=== PATIENT | male | born 1950 | race Caucasian/White ===

== ENCOUNTER 2018-02-15 01:01 | Observation (INO) | payer OTHER ==
[2018-02-15 01:42] LABS: Absolute Lymphocytes (CBC) 2.8 K/uL (0.7-4.9); Absolute Monocytes 0.8 K/uL (0.1-1.3); Absolute Neutrophil 3.1 K/uL (1.8-8.0); Basophils % 0.9 % (0-1.3); Eosinophils % 4.9 % (0-4.4); Lymphocytes % 39.2 % (15.3-44.8); MCH 32.7 pg (27.0-35.0); MCV 92.2 fL (80-100); MPV 7.9 fL (7.6-11.3); Monocytes % 11.6 % (3.3-12.3); RBC Red Blood Cell Count 4.66 M/uL (4.33-5.43)
[2018-02-15 01:43] LABS: Protime INR 0.92
[2018-02-15 01:55] LABS: ALT/SGPT 46 U/L (12-78); AST/SGOT 28 U/L (15-37); Albumin 3.9 g/dL (3.4-5.0); Alkaline Phosphatase 121 U/L (45-117); BUN Blood Urea Nitrogen 20 mg/dL (7-18); Bicarbonate 28 mmol/L (21-32); Bilirubin Total 0.6 mg/dL (0.2-1.0); Glucose Level 109 mg/dL (74-106); Magnesium 2.2 mg/dL (1.8-2.4); NT PRO-BNP 14 pg/mL (<125); Potassium 3.6 mmol/L (3.5-5.1); Protein, Total 7.1 g/dL (6.4-8.2); Sodium Level 142 mmol/L (136-145); Troponin (Emerg Dept Use Only) < 0.02 ng/mL (0.0-0.045)
--- NOTE | 2018-02-15 04:13 | EDPHYS ---
Physician Documentation [facility] Name: Erick Horn Age: 67 yrs Sex: Male : 1950 Arrival Date: 02/15/2018 Time: 01:06 Bed 7 Private MD: ED Physician Yeison Hall HPI: 02/15 01:13 This 67 yrs old Male presents to ER via Wheelchair with complaints of Chest ps1 Pain. 01:13 The patient or guardian reports chest pain that is located primarily in the substernal ps1 area. Onset: just prior to arrival. The pain radiates to back. Associated signs and symptoms: The patient has no apparent associated signs or symptoms. The chest pain is described as a pressure. Duration: The patient or guardian reports a single episode, that is still ongoing, and unchanged. Severity of pain: At its worst the pain was moderate. The patient has not experienced similar symptoms in the past. HTN, HLD. . Historical: - Allergies: 01:12 No Known Allergies; tl2 - Home Meds: 01:12 None [Active]; tl2 - PMHx: 01:12 Hyperlipidemia; Hypertension; tl2 - PSHx: 01:12 None; tl2 - Immunization history:: Adult Immunizations up to date. - Social history:: Smoking status: Patient uses tobacco products, smokes one-half pack cigarettes per day. - Ebola Screening: : No symptoms or risks identified at this time. ROS: 01:16 Constitutional: Negative for fever, chills, and weight loss, Eyes: Negative for injury, ps1 pain, redness, and discharge, Respiratory: Negative for shortness of breath, cough, wheezing, and pleuritic chest pain, Abdomen/GI: Negative for abdominal pain, nausea, vomiting, diarrhea, and constipation, Back: Negative for injury and pain, MS/Extremity: Negative for injury and deformity, Skin: Negative for injury, rash, and discoloration, Neuro: Negative for headache, weakness, numbness, tingling, and seizure. 01:16 Cardiovascular: Positive for chest pain. Exam: 01:16 Constitutional: This is a well developed, well nourished patient who is awake, alert, ps1 and in no acute distress. Head/Face: Normocephalic, atraumatic. Eyes: Pupils equal round and reactive to light, extra-ocular motions intact. Lids and lashes normal. Conjunctiva and sclera are non-icteric and not injected. Chest/axilla: Normal chest wall appearance and motion. Nontender with no deformity. No lesions are appreciated. Cardiovascular: Regular rate and rhythm. No gallops, murmurs, or rubs. Normal PMI, no JVD. No pulse deficits. Respiratory: Lungs have equal breath sounds bilaterally, clear to auscultation and percussion. No rales, rhonchi or wheezes noted. No increased work of breathing, no retractions or nasal flaring. Abdomen/GI: Soft, non-tender, with normal bowel sounds. No distension or tympany. No guarding or rebound. No evidence of tenderness throughout. Skin: Warm, dry with normal turgor. Normal color with no rashes, no lesions, and no evidence of cellulitis. MS/ Extremity: Pulses equal, no cyanosis. Neurovascular intact. Full, normal range of motion. Neuro: Awake and alert, GCS 15, oriented to person, place, time, and situation. Cranial nerves II-XII grossly intact. Sensory grossly intact. Psych: Awake, alert, with orientation to person, place and time. Behavior, mood, and affect are within normal limits. Vital Signs: 01:12 BP 146 / 89; Pulse 84; Resp 22; Temp 97.6(O); Pulse Ox 96% on R/A; Weight 90.72 kg; tl2 Height 6 ft. 1 in. (185.42 cm); Pain 10/10; 01:12 BP 153 / 90 RA; tl2 01:55 BP 127 / 76; Pulse 72; Resp 16 S; Pulse Ox 96% on R/A; bb 03:11 BP 113 / 70; Pulse 70; Resp 10; Pulse Ox 96% on R/A; tl2 03:57 BP 111 / 68; Pulse 70; Resp 13; Pulse Ox 97% on R/A; tl2 06:01 BP 142 / 92; Pulse 70; Resp 13; Pulse Ox 95% on R/A; tl2 01:12 Body Mass Index 26.39 (90.72 kg, 185.42 cm) tl2 MDM: 01:13 Patient medically screened. ps1 02/15 01:12 Order name: CBC with Diff; Complete Time: 01:44 ps1 02/15 01:12 Order name: Magnesium; Complete Time: 01:56 ps1 02/15 01:12 Order name: NT PRO-BNP; Complete Time: :56 ps1 02/15 01:12 Order name: PT-INR; Complete Time: :45 ps1 02/15 01:12 Order name: Troponin (emerg Dept Use Only); Complete Time: 01:56 ps1 02/15 01:12 Order name: DD; Complete Time: :45 ps1 02/15 01:12 Order name: XRAY Chest (1 view) ps1 02/15 01:12 Order name: EKG; Complete Time: 01:12 ps1 02/15 01:12 Order name: Cardiac monitoring; Complete Time: :16 ps1 02/15 01:12 Order name: EKG - Nurse/Tech; Complete Time: :16 ps1 02/15 01:12 Order name: IV Saline Lock; Complete Time: :16 ps1 02/15 01:42 Order name: Comprehensive Metabolic Panel; Complete Time: :56 EDMS 02/15 05:08 Order name: Troponin (emerg Dept Use Only); Complete Time: 05:45 bb 02/15 01:12 Order name: Labs collected and sent; Complete Time: :16 ps1 02/15 01:12 Order name: O2 Per Protocol; Complete Time: :17 ps1 02/15 01:12 Order name: O2 Sat Monitoring; Complete Time: :17 ps1 EC:03 Rate is 85 beats/min. Rhythm is regular. QRS [place] is Normal. ND interval is normal. QRS ps1 interval is normal. QT interval is normal. No Q waves. T waves are Normal. No ST changes noted. Clinical impression: Normal ECG. Interpreted by me. Administered Medications: No medications were administered Disposition: 02/15/18 04:12 Hospitalization ordered by Coleen Corbett for Observation. Preliminary diagnosis is Chest pain, unspecified. - Bed requested for Telemetry/MedSurg (observation). - Status is Observation. tl2 - Condition is Stable. - Problem is new. - Symptoms have improved. UTI on Admission? No Signatures: Dispatcher [employer] [facility] Kaitlin Alcazar RN RN mw Gloria Sullivan RN RN tl2 Yeison Hall MD MD ps1 Corrections: (The following items were deleted from the chart) 02:08 01:42 COMPREHENSIVE METABOLIC PANEL+C.LAB.BRZ ordered. EDMS EDMS 04:33 04:12 Hospitalization Ordered by Coleen Corbett MD for Observation. Preliminary mw diagnosis is Chest pain, unspecified. Bed requested for Telemetry/MedSurg (observation). Status is Observation. Condition is Stable. Problem is new. Symptoms have improved. UTI on Admission? No. ps1 04:51 04:33 02/15/2018 04:12 Hospitalization Ordered by Coleen Corbett MD for Observation. mw Preliminary diagnosis is Chest pain, unspecified. Bed requested for Telemetry/MedSurg (observation). Status is Observation. Condition is Stable. Problem is new. Symptoms have improved. UTI on Admission? No. mw 06:32 04:51 02/15/2018 04:12 Hospitalization Ordered by Coleen Corbett MD for Observation. tl2 Preliminary diagnosis is Chest pain, unspecified. Bed requested for Telemetry/MedSurg (observation). Status is Observation. Condition is Stable. Problem is new. Symptoms have improved. UTI on Admission? No. mw
--- NOTE | 2018-02-15 04:13 | ER ---
Nurse's Notes [facility] Name: Erick Horn Age: 67 yrs Sex: Male : 1950 Arrival Date: 02/15/2018 Time: 01:06 Bed 7 Private MD: Diagnosis: Chest pain, unspecified Presentation: 02/15 01:10 Presenting complaint: Patient states: "I woke up about 20 minutes ago with chest pain tl2 that goes to my back." Pt clutching chest and reports shortness of breath. Transition of care: patient was not received from another setting of care. Onset of symptoms was February 15, 2018 at 00:45. Risk Assessment: Do you want to hurt yourself or someone else? Patient reports no desire to harm self or others. Initial Sepsis Screen: Does the patient meet any 2 criteria? No. Patient's initial sepsis screen is negative. Does the patient have a suspected source of infection? No. Patient's initial sepsis screen is negative. Care prior to arrival: None. 01:10 Method Of Arrival: Wheelchair tl2 01:10 Acuity: EDER 2 tl2 Triage Assessment: 01:12 General: Appears in no apparent distress. uncomfortable, Behavior is cooperative, tl2 appropriate for age, anxious. Pain: Complains of pain in back and chest Pain does not radiate. Pain currently is 10 out of 10 on a pain scale. Quality of pain is described as sharp, Noted to be grimacing, guarding. Neuro: Level of Consciousness is awake, alert, obeys commands, Oriented to person, place, time, situation. Cardiovascular: Rhythm is sinus rhythm Chest pain is described as diffuse. Respiratory: Reports shortness of breath Airway is patent Respiratory effort is even, unlabored, Respiratory pattern is regular, symmetrical. GI: No signs and/or symptoms were reported involving the gastrointestinal system. Derm: Skin is pink, warm \\T\\ dry. Historical: - Allergies: 01:12 No Known Allergies; tl2 - Home Meds: 01:12 None [Active]; tl2 - PMHx: 01:12 Hyperlipidemia; Hypertension; tl2 - PSHx: 01:12 None; tl2 - Immunization history:: Adult Immunizations up to date. - Social history:: Smoking status: Patient uses tobacco products, smokes one-half pack cigarettes per day. - Ebola Screening: : No symptoms or risks identified at this time. Screenin:15 Abuse screen: Denies threats or abuse. Nutritional screening: No deficits noted. tl2 Tuberculosis screening: No symptoms or risk factors identified. Fall Risk None identified. Assessment: 01:13 General: Appears uncomfortable, well groomed, Behavior is cooperative, anxious. Pain: bb Complains of pain in chest Pain radiates to back Pain began suddenly. Neuro: Level of Consciousness is awake, alert, obeys commands, Oriented to person, place, time, situation. Cardiovascular: Heart tones S1 S2 present Capillary refill < 3 seconds Patient's skin is warm and dry. Pulses are all present. Edema is absent. Rhythm is sinus rhythm. Respiratory: Respiratory effort is unlabored, Breath sounds are clear bilaterally. GI: Abdomen is non-distended, Bowel sounds present X 4 quads. Abd is soft and non tender X 4 quads. Derm: Skin is pink, warm \\T\\ dry. Musculoskeletal: Circulation, motion, and sensation intact. 01:54 Reassessment: Patient and/or family updated on plan of care and expected duration. Pain bb level reassessed. Patient is alert, oriented x 3, equal unlabored respirations, skin warm/dry/pink. pt states pain has improved now 10/09. 03:11 Reassessment: Patient appears in no apparent distress at this time. Patient and/or tl2 family updated on plan of care and expected duration. Pain level reassessed. Pt appears to be sleeping, RR even and unlabored. 06:06 Reassessment: Patient appears in no apparent distress at this time. Patient and/or tl2 family updated on plan of care and expected duration. Pain level reassessed. Patient is alert, oriented x 3, equal unlabored respirations, skin warm/dry/pink. Pt stable and ready for transport to floor Patient states feeling better. Vital Signs: 01:12 BP 146 / 89; Pulse 84; Resp 22; Temp 97.6(O); Pulse Ox 96% on R/A; Weight 90.72 kg; tl2 Height 6 ft. 1 in. (185.42 cm); Pain 10/; 01:12 BP 153 / 90 RA; tl2 01:55 BP 127 / 76; Pulse 72; Resp 16 S; Pulse Ox 96% on R/A; bb 03:11 BP 113 / 70; Pulse 70; Resp 10; Pulse Ox 96% on R/A; tl2 03:57 BP 111 / 68; Pulse 70; Resp 13; Pulse Ox 97% on R/A; tl2 06:01 BP 142 / 92; Pulse 70; Resp 13; Pulse Ox 95% on R/A; tl2 01:12 Body Mass Index 26.39 (90.72 kg, 185.42 cm) tl2 Vitals: 01:12 The patient's bilateral blood pressures are equal. tl2 ED Course: 01:05 Inserted saline lock: 20 gauge in right antecubital area, using aseptic technique. bb Blood collected. 01:06 Patient arrived in ED. fc 01:10 Gloria Sullivan RN is Primary Nurse. tl2 01:11 Yeison Hall MD is Attending Physician. ps1 01:11 Triage completed. tl2 01:12 Arm band placed on right wrist. tl2 01:15 Patient maintains SpO2 saturation greater than 95% on room air. tl2 01:15 Patient has correct armband on for positive identification. Bed in low position. Call tl2 light in reach. Side rails up X2. clay pigeon setter on. Pulse ox on. NIBP on. 01:22 X-ray completed. Portable x-ray completed in exam room. Patient tolerated procedure ml well. 01:23 XRAY Chest (1 view) In Process Unspecified. EDMS 01:44 Notified ED physician of a critical lab result(s). d-dimer of 523. fc 04:12 Coleen Corbett MD is Hospitalizing Provider. ps1 06:06 No provider procedures requiring assistance completed. Patient admitted, IV remains in tl2 place. Administered Medications: No medications were administered Outcome: 04:12 Decision to Hospitalize by Provider. ps1 06:06 Admitted to Tele accompanied by nurse, via wheelchair, room 402, with chart, Report tl2 called to MARIAM Ceron 06:06 Condition: stable 06:06 Discharge instructions given to patient, Instructed on the need for admit. 06:32 Patient left the ED. tl2 Signatures: Dispatcher [employer] [facility]OK Loraine Cobian RN RN Paola Briones RN RN bb Lopez, Melissa ml Knox, Taylor, RN RN tl2 Yeison Hall MD MD ps1
[2018-02-15] MEDS ORDERED: ACETAMINOPHEN 500 MG TAB PO PRN (05:39)
[2018-02-15] MEDS ORDERED: MORPHINE 4 MG/ML SYR IV PRN (05:39)
[2018-02-15 06:37] VITALS: BMI 27.1
[2018-02-15 06:41] VITALS: O2SAT 95
[2018-02-15] MEDS ORDERED: NA CHLORIDE 0.9% 1,000 ML IV SCH (07:00)
--- NOTE | 2018-02-15 07:32 | P.HP ---
Certification for Inpatient Patient admitted to: Observation With expected LOS: <2 Midnights Patient will require the following post-hospital care: None Practitioner: I am a practitioner with admitting privileges, knowledge of patient current condition, hospital course, and medical plan of care. Services: Services provided to patient in accordance with Admission requirements found in Title 42 Section 412.3 of the Code of Federal Regulations Patient History Date of Service: 02/15/18 Reason for admission: Chest pain History of Present Illness: Patient is a 67-year-old gentleman who came into the hospital with chest pain. Pain was mainly in the sternal region and radiated to his back. His symptoms were not improving so he came to the hospital for evaluation. His chest pain slowly alleviated in the emergency room on its own. He was given medication but he is unsure exactly what he was given. Currently he is feeling much better. Labs revealed elevated D-dimer but no other abnormality. Patient does have a history of tobacco use and smokes half a pack of cigarettes a day. Otherwise he has dyslipidemia but denies any other risk factors. No diabetes or hypertension. He denies any family history. He will be admitted to the hospital for further evaluation. Allergies No Known Allergies Allergy (Verified 02/15/18 05:53) Home Medications: NK [No Home Meds] 02/15/18 - Past Medical/Surgical History Past Medical History: Patient denies medical history -: Dyslipidemia Past Surgical History: Patient denies surgical history - Family History Father Family History: Reviewed- Non-Contributory - Social History Smoking Status: Heavy Tobacco smoker (>10 cigarettes/day) Review of Systems 10-point ROS is otherwise unremarkable Physical Examination - Vital Signs Temperature: 97.9 F Blood Pressure: 156/85 Pulse: 70 Respirations: 16 Pulse Ox (%): 97 - Physical Exam General: Alert, In no apparent distress, Oriented x3 HEENT: Atraumatic, PERRLA, Mucous membr. moist/pink, EOMI, Sclerae nonicteric Neck: Supple, 2+ carotid pulse no bruit, No LAD, Without JVD or thyroid abnormality Respiratory: Clear to auscultation bilaterally, Normal air movement Cardiovascular: Regular rate/rhythm, Normal S1 S2, No murmurs Gastrointestinal: Normal bowel sounds, Soft and benign, Non-distended, No tenderness Musculoskeletal: No clubbing, No swelling, No tenderness Integumentary: No rashes Neurological: Normal gait, Normal speech, Normal strength at 5/5 x4 extr, Normal tone, Sensation intact, Cranial nerves 3-12 intact, Normal affect Lymphatics: No axilla or inguinal lymphadenopathy - Studies Laboratory Data (last 24 hrs) 02/15/18 01:42: Sodium Cancelled, Potassium Cancelled, BUN Cancelled, Creatinine Cancelled, Glucose Cancelled, Total Bilirubin Cancelled, AST Cancelled, ALT Cancelled, Alkaline Phosphatase Cancelled 02/15/18 01:15: PT 10.9, INR 0.92 02/15/18 01:15: Sodium 142, Potassium 3.6, BUN 20 H, Creatinine 1.00, Glucose 109 H, Magnesium 2.2, Total Bilirubin 0.6, AST 28, ALT 46, Alkaline Phosphatase 121 H 02/15/18 01:15: WBC 7.0, Hgb 15.3, Hct 43.0, Plt Count 215 Assessment & Plan - Problems (Diagnosis) (1) Chest pain, rule out acute myocardial infarction Current Visit: Yes Status: Acute (2) Pain radiating to back Current Visit: Yes Status: Acute (3) Dyslipidemia Current Visit: Yes Status: Acute (4) Tobacco use Current Visit: Yes Status: Acute - Plan 1. Serial troponins and EKG 2. Cardiology consultation 3. Echocardiogram and will do a CT of the chest for dissection 4. Anti-platelet therapy, beta-ezequiel, statin, and O2 as needed 5. IV morphine for pain 6. Fabricator Foam Rubber regarding tobacco cessation 7. GI and DVT prophylaxis Discharge Plan: Home Plan to discharge in: Greater than 2 days - Advance Directives Does patient have a Living Will: No Does patient have a Durable POA for Healthcare: No - Code Status/Comfort Care Code Status Assessed: Yes Code Status: Full Code Critical Care: No Time Spent Managing PTS Care (In Minutes): 50
[2018-02-15 07:50] LABS: HDL Cholesterol 39 mg/dL (40-60); LDL Cholesterol, Calculated 21 (<130); Troponin I < 0.02 ng/mL (0.0-0.045)
--- NOTE | 2018-02-15 07:51 | EKG ---
Test Date: 2018-02-15 Test Time: 01:03:46 Improvement Coordinator: MEASUREMENT RESULTS: Intervals: Rate: 85 [place]: 150 QRSD: 100 QT: 356 QTc: 423 [place]: P: 48 [place]: 150 QRS: 59 T: 61 INTERPRETIVE STATEMENTS: Normal sinus rhythm Normal ECG Compared to ECG 12/12/2006 13:56:13 Early repolarization no longer present Electronically Signed On 02-15-18 07:50:53 CDT by Aaron Apple
--- NOTE | 2018-02-15 08:40 | RAD REPORT ---
EXAM DESCRIPTION: RAD - Chest Single View - 02/15/2018 1:26 am CLINICAL HISTORY: CHEST PAIN Chest pain. COMPARISON: No comparisons FINDINGS: Portable technique limits examination quality. The lungs are grossly clear. The heart is normal in size. No displaced fractures. IMPRESSION: No acute intrathoracic process suspected.
[2018-02-15] MEDS ORDERED: ASPIRIN EC 81 MG TAB PO SCH (09:00)
[2018-02-15] MEDS ORDERED: METOPROLOL TAR 50 MG TAB PO SCH (09:00)
[2018-02-15] MEDS ORDERED: REGADENOSON 0.4 MG/5 ML SYR IV ONE (09:26)
[2018-02-15] MEDS ORDERED: PNEUMOCOCCAL VACCINE 0.5 ML IMVAC ONE (10:00)
--- NOTE | 2018-02-15 10:33 | EKG ---
Test Date: 2018-02-15 Test Time: 08:01:13 Heel Coverer Machine Operator: SASCHA MEASUREMENT RESULTS: Intervals: Rate: 62 PA: 194 QRSD: 90 QT: 388 QTc: 393 [place]: P: PA: 194 QRS: 37 T: 42 INTERPRETIVE STATEMENTS: Normal sinus rhythm Normal ECG Compared to ECG 02/15/2018 01:03:46 No significant changes Electronically Signed On 02-15-18 10:32:34 CDT by Aaron Apple
--- NOTE | 2018-02-15 10:40 | RAD REPORT ---
EXAM DESCRIPTION: CT - Angio Aorta For Dissection - 02/15/2018 10:28 am CLINICAL HISTORY: Chest pain radiating to the back. chest pain radiating to back COMPARISON: No comparisons TECHNIQUE: CT angiography of the aorta was performed with MIPs. All CT scans are performed using dose optimization technique as appropriate and may include automated exposure control or mA/KV adjustment according to patient size. FINDINGS: A left aortic arch is present with 4 vessel branching pattern of the great vessels.No acut e aortic finding is seen such as aneurysm, penetrating ulcer or dissection. The celiac axis, SMA, IM A and renal arteries are widely patent. No evidence of pulmonary embolism. The lungs are clear. Diffuse fatty liver is present.No focal liver mass or biliary dilatation. Several small gallstones ar e present in the gallbladder.The spleen, pancreas, adrenal glands and kidneys are within normal limit s for arterial phase imaging.20 mm diverticulum is seen of the duodenum near the pancreatic head. No bowel obstruction, free fluid or abscess.The appendix is normal.No pathologic enlarged lymphadenop athy identified. No fracture or worrisome bone lesion seen. IMPRESSION: No acute aortic finding is demonstrated. Cholelithiasis. Fatty liver infiltration.
[2018-02-15 12:46] VITALS: BP 120/65; TEMP 97.9
--- NOTE | 2018-02-15 13:50 | RAD REPORT ---
EXAM DESCRIPTION: NM - Rest Stress Cardiac Imaging - 02/15/2018 1:07 pm CLINICAL HISTORY: Chest pain COMPARISON: None. TECHNIQUE: The patient was administered 10.6 mCi of Tc 99m Sestamibi prior to resting SPECT imaging of the heart. The patient was then administered 32.2 mCi of Tc 99m Sestamibi following exercise or ph armacologic stress. Multiplanar SPECT images were reviewed. FINDINGS: The end diastolic volume is 118 ml, the end systolic volume is 48 ml, and the ejection fra ction is 59 %. No stress-induced ischemic change identifiable. A small fixed defect anteroseptal wall near the apex is probably attenuation artifact. A small focus of scarring is possible. No other fixed defects seen. IMPRESSION: No stress-induced ischemia. Small fixed defect anteroseptal wall near the apex could be scarring or a small attenuation artifact. End-diastolic volume was 118 mL with a 59% EF.
--- NOTE | 2018-02-15 14:24 | TREADPHA ---
DX: CHEST PAIN Date of Study: 02/15/2018 Ht: 6 1 Wt: 206 lb 0 oz Consulting Physician: DOMONIQUE MEDICATIONS: TYLENOL, ASPIRIN, LOPRESSOR HISTORY: 67 YEAR OLD MALE WITH COMPLAINTS OF CHEST PAIN. HISTORY OF SMOKING. PHYSICIAL EXAMINATION: RESTING B.P.: 133/69 RESTING H.R.: 57 RESTING EKG: SINUS BRADYCARDIA, OTHERWISE NORMAL PROTOCOL: EXERCISE TIME: 3:30 B.P. AT PEAK STRESS: 126/69 IMPRESSION: LEXISCAN INJECTED; CARDIOLITE INJECTED PER PROTOCOL. SEE NUCLEAR MEDICINE REPORT. NO CHEST PAIN. NO VENTRICULAR TACHYCARDIA. NO SUPRAVENTRICULAR TACHYCARDIA. NON-DIAGNOSTIC ELECTROCARDIOGRAM WITH LEXISCAN STRESS.
--- NOTE | 2018-02-15 14:25 | CON ---
Additional Attending Physician: Dr. Landon. Chief Complaint: Chest pain. History Of Present Illness: The patient awakened and sometimes got admitted at midnight and 2 a.m. t his morning with pain in center part of his back, may be epigastric posterior and also pain in the ch est. It went away when he sat up and walked around since he has been in the hospital. He has had a normal EKG, normal enzymes. He has no history of heart disease. He has hypertension, but he stopped taking medicines a year ago. He has a history of hyperthyroidism. He took medicines for a while, t hen quit. Has not had any followup with a physician in sometime. He took cholesterol medicines. Do es not remember high they were quit taking that also. He is a regular tobacco user. Does not have a n exercise program. No history of myocardial infarction, stroke, stents in the heart, bypass surgery , or chest pain before this. Allergies: HE REPORTS NO ALLERGIES. Physical Examination: Vital Signs: Six feet and 1 inch, 206 pounds, body mass index 27. HEENT: Unremarkable. Lungs: Clear. Cardiac: Normal. Abdomen: Soft. Extremities: Normal. No cyanosis, clubbing, or edema. Distal pulses palpable. Laboratory Data: His electrocardiogram is normal. Chest x-ray is normal. Assessment And Plan: I think the patient should have an echo and a stress test and repeat TSH. He s hould go through the tobacco cessation program and we should base any further testing or interventions on the results of the preli minary test. JACK Voice ID: [id number] Report ID: [id number]
--- NOTE | 2018-02-15 14:28 | ECHO ---
HEIGHT: 6 ft 1 in WEIGHT: 206 lb 0 oz DATE OF STUDY: 02/15/[address]: Coleen Corbett MD 2-DIMENSIONAL: YES M.MODE: YES DOPPLER: YES COLOR FLOW: YES TDS: YES PORTABLE: DEFINITY: BUBBLE STUDY: DIAGNOSIS: CHEST PAIN RULE OUT ACUTE CORNARY SYNDROME CARDIAC HISTORY: CATHERIZATION: NO SURGERY: NO PROSTHETIC VALVE: NO PACEMAKER: NO MEASUREMENTS (cm) DIASTOLIC (NORMALS) SYSTOLIC (NORMALS) IVSd 0.9 (0.6-1.2) LA Diam 4.1 (1.9-4.0) LVEF 60-69% LVIDd 5.0 (3.5-5.7) LVIDs 3.7 (2.0-3.5) %FS 26% LVPWd 0.9 (0.6-1.2) Ao Diam 3.2 (2.0-3.7) 2 DIMENSIONAL ASSESSMENT: RIGHT ATRIUM: NORMAL LEFT ATRIUM: DILATED RIGHT VENTRICLE: NORMAL LEFT VENTRICLE: NORMAL TRICUSPID VALVE: NORMAL MITRAL VALVE: NORMAL PULMONIC VALVE: NORMAL AORTIC VALVE: NORMAL PERICARDIAL EFFUSION: NONE AORTIC ROOT: NORMAL LEFT VENTRICULAR WALL MOTION: NORMAL DOPPLER/COLOR FLOW: NORMAL COMMENTS: MIILDLY DILATED LEFT ATRIUM. OTHERWISE NORMAL 2-DIMENSIONAL ECHOCARDIOGRAM WITH DOPPLER. TECHNOLOGIST: PELON BARRON
--- NOTE | 2018-02-15 17:44 | P.DS ---
Admission Date: 02/15/18 Discharge Date: 02/15/18 Disposition: ROUTINE DISCHARGE Discharge Condition: GOOD Reason for Admission: Chest pain - Problems (1) Chest pain, rule out acute myocardial infarction Current Visit: Yes Status: Acute (2) Dyslipidemia Current Visit: Yes Status: Acute Brief History of Present Illness: Patient presented with chest pressure. Was admitted by the hospitalist Hospital Course: Placed in Telemetry. Seen by Dr. Apple normal stress test and echocardiogram. Will discharge him home. Give him 30 days of his medications. Have the patient follow up with Nelson Pulido. His pcp. Vital Signs/Physical Exam: Temp Pulse Resp BP Pulse Ox 97.9 F 59 18 120/65 97 02/15/18 12:00 02/15/18 12:00 02/15/18 12:00 02/15/18 12:00 02/15/18 12:00 General: Alert, In no apparent distress HEENT: Atraumatic, PERRLA, EOMI Neck: Supple, JVD not distended Respiratory: Clear to auscultation bilaterally, Normal air movement Cardiovascular: Regular rate/rhythm, Normal S1 S2 Gastrointestinal: Normal bowel sounds, No tenderness Musculoskeletal: No tenderness Integumentary: No rashes Neurological: Normal speech, Normal tone, Normal affect Lymphatics: No axilla or inguinal lymphadenopathy Laboratory Data at Discharge: WBC 7.0 K/uL (4.3-10.9) 02/15/18 01:15 Hgb 15.3 g/dL (13.6-17.9) 02/15/18 01:15 Hct 43.0 % (39.6-49.0) 02/15/18 01:15 Plt Count 215 K/uL (152-406) 02/15/18 01:15 PT 10.9 SECONDS (9.5-12.5) 02/15/18 01:15 INR 0.92 02/15/18 01:15 Sodium 142 mmol/L (136-145) 02/15/18 01:15 Potassium 3.6 mmol/L (3.5-5.1) 02/15/18 01:15 BUN 20 mg/dL (7-18) H 02/15/18 01:15 Creatinine 1.00 mg/dL (0.55-1.3) 02/15/18 01:15 Glucose 109 mg/dL (74-106) H 02/15/18 01:15 Magnesium 2.2 mg/dL (1.8-2.4) 02/15/18 01:15 Total Bilirubin 0.6 mg/dL (0.2-1.0) 02/15/18 01:15 AST 28 U/L (15-37) 02/15/18 01:15 ALT 46 U/L (12-78) 02/15/18 01:15 Alkaline Phosphatase 121 U/L (45-117) H 02/15/18 01:15 Troponin I < 0.02 ng/mL (0.0-0.045) 02/15/18 14:21 Triglycerides 97 mg/dL (<150) 02/15/18 07:03 Cholesterol 79 mg/dL (<200) 02/15/18 07:03 HDL Cholesterol 39 mg/dL (40-60) L 02/15/18 07:03 Cholesterol/HDL Ratio 2.03 02/15/18 07:03 Home Medications: Aspirin Chewable [Aspirin Chewable*] 81 mg PO DAILY #90 tab.chew 02/15/18 Metoprolol Tartrate [Lopressor*] 12.5 mg PO DAILY #30 tab 02/15/18 Rosuvastatin [Crestor*] 40 mg PO BEDTIME 30 Days #30 tab 02/15/18 Rosuvastatin [Crestor] 40 mg PO BEDTIME 02/15/18 methIMAzole [Tapazole*] 5 mg PO BID 30 Days #60 tab 02/15/18 methIMAzole [Tapazole] 5 mg PO BID 02/15/18 New Medications: Aspirin Chewable [Aspirin Chewable*] 81 mg PO DAILY #90 tab.chew methIMAzole [Tapazole*] 5 mg PO BID 30 Days #60 tab Metoprolol Tartrate [Lopressor*] 12.5 mg PO DAILY #30 tab Rosuvastatin [Crestor*] 40 mg PO BEDTIME 30 Days #30 tab Diet: Regular Activity: Ad leonela Followup: Libra Pulido NP [Primary Care Provider] - 1-2 Weeks Time spent managing pt's care (in minutes): 20
[2018-02-15] MEDS ORDERED: ROSUVASTATIN 10 MG TAB PO SCH (21:00)
== END 2018-02-15 15:56 | disposition home or self-care (01) ==
LOC: ER 01:01 → ERHOLD 05:26 → INTOOBSV 05:26 → 4TH 06:06
PROVIDERS: ADMIT Internal Medicine; ATTEND Hospitalist
DX: R07.9 Chest pain, unspecified (principal); E78.5 Hyperlipidemia, unspecified; I10 Essential (primary) hypertension; F17.210 Nicotine dependence, cigarettes, uncomplicated; Z23 Encounter for immunization
CPT/HCPCS: 36415; 71045; 71275; 74175; 78452; 80053; 80061; 83735; 83880; 84443; 84484 ×4; 85025; 85379; 85610; 90670; 93005 ×2; 93017; 93306; 99285; A9500; G0009; G0378 ×2; J2785; Q9967

== ENCOUNTER 2019-03-12 12:43 | Emergency (ER) | payer OTHER ==
--- OUTSIDE RECORDS SUMMARY | 2019-03-12 12:45 | XMS REPORT ---
:1950 Author Organization eClinicalWorks Care Team Providers Name Role Phone Chikis Pulido Provider Role Unavailable Allergies No Known Allergies Problems Problem Type Condition Code Onset Dates Condition Status Problem Hyperlipemia E78.5 Active Problem Hyperthyroidism E05.90 Active Problem HTN (hypertension) I10 Active Problem Nicotine dependence F17.200 Active Medications No Known Medications Results No Known Results Summary Purpose eClinicalWorks Submission
--- OUTSIDE RECORDS SUMMARY | 2019-03-12 12:46 | XMS REPORT ---
:1950 Author Organization eClinicalWorks Care Team Providers Name Role Phone Derik Meghna Provider Role Unavailable Allergies, Adverse Reactions, Alerts Substance Reaction Event Type N.K.D.A. Info Not Available Non Drug Allergy Problems Problem Type Condition Code Onset Dates Condition Status Problem Hyperlipemia E78.5 Active Problem Hyperthyroidism E05.90 Active Problem HTN (hypertension) I10 Active Assessment Upper respiratory tract infection, J06.9 Active unspecified type Assessment Bronchitis J40 Active Problem Nicotine dependence F17.200 Active Medications Medication Code Code Instructions Start End Status Dosage System Date Date Vance Aspirin [facility] [address]-10 Active not defined Flonase [facility] 47180075281 50 MCG/ACT June Active 2 sprays Nasally Once a 2018 each day nostril prn Benzonatate [facility] 97263441917 200 MG Orally June Active 1 capsule Three times a 2018 day Azithromycin [facility] 78073351304 250 MG Orally June Active 2 tablets Once a day 2018 on the first day, then 1 tablet daily for 4 days Methimazole [facility] 51214082912 10 MG Active TAKE 1 TABLET BY MOUTH TWICE DAILY Metoprolol [facility] 74815945670 25 MG Active TAKE 1/2 Tartrate (ONE-HALF) TABLET BY MOUTH ONCE DAILY Crestor [facility] 86844095403 40 MG Orally Active 1 tablet Once a day Multivitamin [facility] 28738424232 - Orally Active as Adults directed Results No Known Results Summary Purpose eClinicalWorks Submission
--- OUTSIDE RECORDS SUMMARY | 2019-03-12 12:46 | XMS REPORT ---
:1950 Author Organization eClinicalWorks Care Team Providers Name Role Phone Chikis Pulido Provider Role Unavailable Allergies, Adverse Reactions, Alerts Substance Reaction Event Type N.K.D.A. Info Not Available Non Drug Allergy Problems Problem Type Condition Code Onset Dates Condition Status Assessment Nicotine dependence F17.200 Active Assessment Hyperlipemia E78.5 Active Assessment Hyperthyroidism E05.90 Active Assessment Screening for prostate cancer Z12.5 Active Problem Nicotine dependence F17.200 Active Problem HTN (hypertension) I10 Active Problem Screening for prostate cancer Z12.5 Active Assessment HTN (hypertension) I10 Active Problem Hyperlipemia E78.5 Active Problem Hyperthyroidism E05.90 Active Medications Medication Code Code Instructions Start End Status Dosage System Date Date Flonase [facility] 95943735707 50 MCG/ACT June Active 2 sprays Nasally Once a 2018 each day nostril prn Crestor [facility] 45420161464 40 MG Orally Active 1 tablet Once a day Methimazole [facility] 69251906797 10 MG Orally Active take 1 twice a day tablet by mouth twice daily Multivitamin [facility] 11462088532 - Orally Active as Adults directed Vance Aspirin [facility] [address]-33 Active not defined Azithromycin [facility] 14870706994 250 MG Orally June Active 2 tablets Once a day 2018 on the first day, then 1 tablet daily for 4 days Benzonatate [facility] 13234369421 200 MG Orally June Active 1 capsule Three times a 2018 day Metoprolol [facility] 29040197152 25 MG Orally Active take 1/2 Tartrate Twice a day (one-half) tablet by mouth once daily Results No Known Results Summary Purpose eClinicalWorks Submission
[2019-03-12] MEDS ORDERED: ONDANSETRON 4 MG/2 ML VIAL ONE (12:52)
[2019-03-12] MEDS ORDERED: NA CHLORIDE 0.9% 2,000 ML ONE (12:52)
--- NOTE | 2019-03-12 13:06 | RAD REPORT ---
EXAM DESCRIPTION: CT - Head Brain Wo Cont - 03/12/2019 1:00 pm CLINICAL HISTORY: DIZZINESS Headache, drowsiness, dizziness COMPARISON: <Comparisons> TECHNIQUE: All CT scans are performed using dose optimization technique as appropriate and may inclu de automated exposure control or mA/KV adjustment according to patient size. FINDINGS: No intracranial hemorrhage, hydrocephalus or extra-axial fluid collection.No areas of brai n edema or evidence of midline shift. The paranasal sinuses and mastoids are clear. The calvarium is intact. IMPRESSION: No acute intracranial abnormality.
[2019-03-12 13:08] LABS: Absolute Lymphocytes (CBC) 1.8 K/uL (0.7-4.9); Basophils % 0.5 % (0-1.3); Hematocrit 38.9 % (39.6-49.0); Lymphocytes % 20.9 % (15.3-44.8); MPV 7.2 fL (7.6-11.3); RBC Red Blood Cell Count 4.28 M/uL (4.33-5.43)
[2019-03-12 13:34] LABS: ALT/SGPT 34 U/L (12-78); AST/SGOT 19 U/L (15-37); Alkaline Phosphatase 79 U/L (45-117); BUN Blood Urea Nitrogen 15 mg/dL (7-18); Bicarbonate 26 mmol/L (21-32); Bilirubin Direct 0.3 mg/dL (0-0.2); Glucose Level 101 mg/dL (74-106); Lipase 116 U/L (73-393); Potassium 3.7 mmol/L (3.5-5.1); Protein, Total 6.7 g/dL (6.4-8.2); Sodium Level 139 mmol/L (136-145); Troponin (Emerg Dept Use Only) < 0.02 ng/mL (0.0-0.045)
--- NOTE | 2019-03-12 16:16 | EDPHYS ---
Physician Documentation [facility] Name: Erick Horn Age: 68 yrs Sex: Male : 1950 Arrival Date: 03/12/2019 Time: 12:43 Bed 5 Private MD: ED Physician Coleen Hogan HPI: 03/12 16:14 This 68 yrs old Male presents to ER via EMS with complaints of ma2 Nausea/Vomiting - weakness. 16:14 The patient presents to the emergency department with nausea, vomiting. Onset: The ma2 symptoms/episode began/occurred gradually, 2 hour(s) ago. Associated signs and symptoms: Pertinent negatives: anorexia, diarrhea, fever, flatulence, hematuria, nausea. Severity of symptoms: At their worst the symptoms were mild in the emergency department the symptoms have resolved. The patient has experienced a previous episode. Historical: - Allergies: 12:49 No Known Allergies; tw2 - Home Meds: 12:49 Crestor oral oral [Active]; Metoprolol Tartrate Oral [Active]; tw2 - PMHx: 12:49 Hyperlipidemia; Hypertension; tw2 - PSHx: 12:49 None; tw2 - Immunization history:: Adult Immunizations. - Social history:: Patient/guardian denies using alcohol, street drugs, The patient lives with family, Smoking status: . - Ebola Screening: : Patient denies travel to an Ebola-affected area in the 21 days before illness onset. - Family history:: not pertinent. ROS: 16:14 Constitutional: Negative for fever, chills, and weight loss. ma2 16:14 All other systems are negative. Exam: 16:14 Constitutional: This is a well developed, well nourished patient who is awake, alert, ma2 and in no acute distress. Head/Face: Normocephalic, atraumatic. Eyes: Pupils equal round and reactive to light, extra-ocular motions intact. Lids and lashes normal. Conjunctiva and sclera are non-icteric and not injected. Cornea within normal limits. Periorbital areas with no swelling, redness, or edema. ENT: Nares patent. No nasal discharge, no septal abnormalities noted. Tympanic membranes are normal and external auditory canals are clear. Oropharynx with no redness, swelling, or masses, exudates, or evidence of obstruction, uvula midline. Mucous membranes moist. Neck: Trachea midline, no thyromegaly or masses palpated, and no cervical lymphadenopathy. Supple, full range of motion without nuchal rigidity, or vertebral point tenderness. No Meningismus. Chest/axilla: Normal chest wall appearance and motion. Nontender with no deformity. No lesions are appreciated. Cardiovascular: Regular rate and rhythm with a normal S1 and S2. No gallops, murmurs, or rubs. Normal PMI, no JVD. No pulse deficits. Respiratory: Lungs have equal breath sounds bilaterally, clear to auscultation and percussion. No rales, rhonchi or wheezes noted. No increased work of breathing, no retractions or nasal flaring. Abdomen/GI: Soft, non-tender, with normal bowel sounds. No distension or tympany. No guarding or rebound. No evidence of tenderness throughout. MS/ Extremity: Pulses equal, no cyanosis. Neurovascular intact. Full, normal range of motion. Neuro: Awake and alert, GCS 15, oriented to person, place, time, and situation. Cranial nerves II-XII grossly intact. Motor strength 5/5 in all extremities. Sensory grossly intact. Cerebellar exam normal. Normal gait. Vital Signs: 12:46 BP 134 / 65; Pulse 61; Resp 17; Temp 97.5; Pulse Ox 97% on R/A; Weight 92.53 kg (R); tw2 Height 6 ft. 1 in. (185.42 cm); Pain 0/10; 13:50 BP 138 / 75; Pulse 63; Resp 15; Pulse Ox 97% on R/A; tw2 14:24 BP 128 / 73; Pulse 51; Resp 16; Pulse Ox 98% on R/A; tw2 15:14 BP 129 / 72; Pulse 55; Resp 17 S; Pulse Ox 99% on R/A; ca1 16:06 BP 136 / 71; Pulse 60; Resp 14; Pulse Ox 100% on R/A; tw2 12:46 Body Mass Index 26.91 (92.53 kg, 185.42 cm) tw2 MDM: 12:44 Patient medically screened. ma2 16:14 Differential diagnosis: Nonspecific abd pain, gastritis, pancreatitis, viral ma2 gastroenteritis. Data reviewed: vital signs, nurses notes. Counseling: I had a detailed discussion with the patient and/or guardian regarding: the historical points, exam findings, and any diagnostic results supporting the discharge/admit diagnosis, the presence of at least one elevated blood pressure reading (>120/80) during this emergency department visit, the need for outpatient follow up. Response to treatment: the patient's symptoms have resolved after treatment. 03/12 12:50 Order name: Basic Metabolic Panel; Complete Time: 14: [facility] 03/12 12:50 Order name: CBC with Diff; Complete Time: 14: [facility] 03/12 12:50 Order name: Creatinine for Radiology; Complete Time: 14: [facility] 03/12 12:50 Order name: Hepatic Function; Complete Time: 14: [facility] 03/12 12:50 Order name: Lipase; Complete Time: 14: [facility] 03/12 12:50 Order name: Troponin (emerg Dept Use Only); Complete Time: 14: [facility] 03/12 12:50 Order name: IV Saline Lock; Complete Time: 12:50 [facility] 03/12 12:50 Order name: Labs collected and sent; Complete Time: 12:56 pr2 03/12 12:50 Order name: CT Head Brain wo Cont; Complete Time: 14: [facility] 03/12 12:50 Order name: EKG - Nurse/Tech; Complete Time: 16:06 [facility] 03/12 13:07 Order name: Glucose, Ancillary Testing; Complete Time: 14:01 [facility] 03/12 16:19 Order name: Urine Dipstick--Ancillary (enter results) bd Administered Medications: 12:53 Drug: NS 0.9% (20 ml/kg) 20 ml/kg Route: IV; Rate: 1 bolus; Site: right antecubital; tw2 16:06 Follow up: Response: No adverse reaction; IV Status: Completed infusion; IV Intake: tw2 2000ml 12:53 Drug: Zofran 4 mg Route: IVP; Site: left antecubital; tw2 13:20 Follow up: Response: No adverse reaction; Nausea is decreased tw2 Disposition: 03/12/19 16:15 Discharged to Home. Impression: Vomiting. - Condition is Stable. - Discharge Instructions: Nausea and Vomiting, Adult, Form - Excuse from Work, School, or Physical Activity. - Prescriptions for Zofran 4 mg Oral Tablet - take 1 tablet by ORAL route every 12 hours As needed; 6 tablet. - Work release form, Medication Reconciliation Form, Thank You Letter, Antibiotic Education, Prescription Opioid Use form. - Follow up: Private Physician; When: Tomorrow; Reason: If symptoms return, Continuance of care. Signatures: Dispatcher [employer] Phyllis Simpson RN RN tw2 Coleen Hogan MD MD ma2 Corrections: (The following items were deleted from the chart) 16:25 16:15 03/12/2019 16:15 Discharged to Home. Impression: Vomiting. Condition is Stable. tw2 Forms are Work release form, Medication Reconciliation Form, Thank You Letter, Antibiotic Education, Prescription Opioid Use. Follow up: Private Physician; When: Tomorrow; Reason: If symptoms return, Continuance of care. ma2
--- NOTE | 2019-03-12 16:16 | ER ---
Nurse's Notes [facility] Name: Erick Horn Age: 68 yrs Sex: Male : 1950 Arrival Date: 03/12/2019 Time: 12:43 Bed 5 Private MD: Diagnosis: Vomiting Presentation: 03/12 12:45 Presenting complaint: EMS states: pt was at work in the restroom having a BM, had an tw2 episode of vomiting, then became weak and dizzy, pt was pale upon our arrival, hx: afib, vs stable. Transition of care: patient was not received from another setting of care. Onset of symptoms was March 12, 2019. Risk Assessment: Do you want to hurt yourself or someone else? Patient reports no desire to harm self or others. Initial Sepsis Screen: Does the patient meet any 2 criteria? No. Patient's initial sepsis screen is negative. Does the patient have a suspected source of infection? No. Patient's initial sepsis screen is negative. Care prior to arrival: IV initiated. 20 GA, in the right antecubital area. 12:45 Method Of Arrival: EMS: [facility] tw2 12:45 Acuity: EDER 3 tw2 Triage Assessment: 12:47 General: Appears in no apparent distress. Behavior is calm, cooperative, appropriate tw2 for age. Pain: Denies pain. EENT: No signs and/or symptoms were reported regarding the EENT system. Neuro: Level of Consciousness is awake, alert, obeys commands, Oriented to person, place, time, situation, Reports dizziness. Cardiovascular: Heart tones S1 S2 Patient's skin is warm and dry. Respiratory: Airway is patent Respiratory effort is even, unlabored, Respiratory pattern is regular, symmetrical, Breath sounds are clear bilaterally. GI: Abdomen is round non-distended, Bowel sounds present X 4 quads. Reports nausea. : No signs and/or symptoms were reported regarding the genitourinary system. Derm: Skin is pale. Musculoskeletal: Range of motion: intact in all extremities. Historical: - Allergies: 12:49 No Known Allergies; tw2 - Home Meds: 12:49 Crestor oral oral [Active]; Metoprolol Tartrate Oral [Active]; tw2 - PMHx: 12:49 Hyperlipidemia; Hypertension; tw2 - PSHx: 12:49 None; tw2 - Immunization history:: Adult Immunizations. - Social history:: Patient/guardian denies using alcohol, street drugs, The patient lives with family, Smoking status: . - Ebola Screening: : Patient denies travel to an Ebola-affected area in the 21 days before illness onset. - Family history:: not pertinent. Screenin:50 Abuse screen: Denies threats or abuse. Nutritional screening: No deficits noted. tw2 Tuberculosis screening: No symptoms or risk factors identified. Fall Risk None identified. Assessment: 12:48 Reassessment: see triage assessment. tw2 13:45 Reassessment: Patient appears in no apparent distress at this time. No changes from tw2 previously documented assessment. Patient and/or family updated on plan of care and expected duration. Pain level reassessed. Patient is alert, oriented x 3, equal unlabored respirations, skin warm/dry/pink. 13:50 Reassessment: Patient appears in no apparent distress at this time. No changes from tw2 previously documented assessment. Patient and/or family updated on plan of care and expected duration. Pain level reassessed. Patient is alert, oriented x 3, equal unlabored respirations, skin warm/dry/pink. 14:24 Reassessment: Patient appears in no apparent distress at this time. No changes from tw2 previously documented assessment. Patient and/or family updated on plan of care and expected duration. Pain level reassessed. Patient is alert, oriented x 3, equal unlabored respirations, skin warm/dry/pink. 16:06 Reassessment: Patient appears in no apparent distress at this time. No changes from tw2 previously documented assessment. Patient and/or family updated on plan of care and expected duration. Pain level reassessed. Patient is alert, oriented x 3, equal unlabored respirations, skin warm/dry/pink. 16:11 Reassessment: provider at bedside at this time. tw2 16:25 Reassessment: Patient appears in no apparent distress at this time. No changes from tw2 previously documented assessment. Patient and/or family updated on plan of care and expected duration. Pain level reassessed. Patient is alert, oriented x 3, equal unlabored respirations, skin warm/dry/pink. Vital Signs: 12:46 BP 134 / 65; Pulse 61; Resp 17; Temp 97.5; Pulse Ox 97% on R/A; Weight 92.53 kg (R); tw2 Height 6 ft. 1 in. (185.42 cm); Pain 0/10; 13:50 BP 138 / 75; Pulse 63; Resp 15; Pulse Ox 97% on R/A; tw2 14:24 BP 128 / 73; Pulse 51; Resp 16; Pulse Ox 98% on R/A; tw2 15:14 BP 129 / 72; Pulse 55; Resp 17 S; Pulse Ox 99% on R/A; ca1 16:06 BP 136 / 71; Pulse 60; Resp 14; Pulse Ox 100% on R/A; tw2 12:46 Body Mass Index 26.91 (92.53 kg, 185.42 cm) tw2 ED Course: 12:43 Patient arrived in ED. iw 12:43 Bed in low position. Call light in reach. monitoring and evaluation advisor on. Pulse ox on. NIBP on. tw2 12:44 Coleen Hogan MD is Attending Physician. ma2 12:44 Phyllis Mendoza, MARIAM is Primary Nurse. tw2 12:46 Triage completed. tw2 12:47 Arm band placed on. tw2 13:02 CT Head Brain wo Cont In Process Unspecified. EDMS 13:02 No provider procedures requiring assistance completed. Maintain EMS IV. Dressing tw2 intact. Good blood return noted. Site clean \T\ dry. Gauge \T\ site: 20g LEFT ac. 13:12 EKG done, by maintenance department technician. reviewed by Coleen Hogan MD. at1 16:25 IV discontinued, intact, bleeding controlled, No redness/swelling at site. Pressure tw2 dressing applied. Administered Medications: 12:53 Drug: NS 0.9% (20 ml/kg) 20 ml/kg Route: IV; Rate: 1 bolus; Site: right antecubital; tw2 16:06 Follow up: Response: No adverse reaction; IV Status: Completed infusion; IV Intake: tw2 2000ml 12:53 Drug: Zofran 4 mg Route: IVP; Site: left antecubital; tw2 13:20 Follow up: Response: No adverse reaction; Nausea is decreased tw2 Intake: 16:06 IV: 2000ml; Total: 2000ml. tw2 Outcome: 16:15 Discharge ordered by . ma2 16:24 Discharged to home ambulatory, with family. tw2 16:24 Condition: stable 16:24 Discharge instructions given to patient, family, Instructed on discharge instructions, follow up and referral plans. medication usage, Demonstrated understanding of instructions, follow-up care, medications, Prescriptions given X 1. 16:25 Patient left the ED. tw2 Signatures: Dispatcher [employer] EDShirley Hall RN RN iw Pamela Moreno, shampoo assistant EKG Tat1 Phyllis Mendoza RN RN tw2 Coleen Hogan MD MD ma2 Sarah Wadr RN RN ca1 Corrections: (The following items were deleted from the chart) 15:16 12:53 NS 0.9% (20 ml/kg) 20 ml/kg IV at 1 bolus in left antecubital tw2 tw2 15:16 15:11 Response: No adverse reaction; IV Status: Completed infusion; IV Intake: 2000ml tw2 tw2
[2019-03-12 16:31] VITALS: TEMP 97.5
[2019-03-12 16:41] VITALS: BP 136/71; O2SAT 100
[2019-03-12 17:14] LABS: Urine Blood NEGATIVE (NEG); Urine Glucose NEGATIVE (NEG); Urine Protein NEGATIVE (NEG); Urine pH 6.5 (5.0-7.0)
--- NOTE | 2019-03-13 08:48 | EKG ---
Test Date: 2019-03-12 Test Time: 13:09:32 Brand Representative: TIFFANIE MEASUREMENT RESULTS: Intervals: Rate: 57 VT: 184 QRSD: 102 QT: 420 QTc: 408 [place]: P: 37 VT: 184 QRS: 42 T: 58 INTERPRETIVE STATEMENTS: Sinus bradycardia Otherwise normal ECG Compared to ECG 02/15/2018 08:01:13 Sinus rhythm no longer present Electronically Signed On 03-13-19 08:45:41 ART EDITOR by Harley Merida
== END 2019-03-12 16:25 | disposition home or self-care (01) ==
LOC: ER 12:43
DX: R11.10 Vomiting, unspecified (principal); E78.5 Hyperlipidemia, unspecified; I10 Essential (primary) hypertension
CPT/HCPCS: 96361; 93005; 85025; 80048; 36415; 82947; 80076; 81003; 84484; 83690; 70450; 96374; 99284; J7030; J2405

== ENCOUNTER 2019-07-10 07:28 | Emergency (ER) | payer OTHER ==
--- OUTSIDE RECORDS SUMMARY | 2019-07-10 07:32 | XMS REPORT ---
[...] Status Dosage System Date Date Vance Aspirin [facility] [address]-14 Active not defined Flonase [facility] 58953393016 50 MCG/ACT June Active 2 sprays Nasally Once a 2018 each day nostril prn Benzonatate [facility] 13278109164 200 MG Orally June Active 1 capsule Three times a 2018 day Azithromycin [facility] 29329342532 250 MG Orally June Active 2 tablets Once a day 2018 on the first day, then 1 tablet daily for 4 days Methimazole [facility] 24478381844 10 MG Active TAKE 1 TABLET BY MOUTH TWICE DAILY Metoprolol [facility] 89586326756 25 MG Active TAKE 1/2 Tartrate (ONE-HALF) TABLET BY MOUTH ONCE DAILY Crestor [facility] 24394220234 40 MG Orally Active 1 tablet Once a day Multivitamin [facility] 90506558019 - Orally Active as Adults directed Results No Known Results Summary Purpose eClinicalWorks Submission
--- OUTSIDE RECORDS SUMMARY | 2019-07-10 07:32 | XMS REPORT ---
[...] End Status Dosage System Date Date Flonase [facility] 73885142835 50 MCG/ACT June Active 2 sprays Nasally Once a 2018 each day nostril prn Crestor [facility] 62571245839 40 MG Orally Active 1 tablet Once a day Methimazole [facility] 62115294365 10 MG Orally Active take 1 twice a day tablet by mouth twice daily Multivitamin [facility] 23035872760 - Orally Active as Adults directed Vance Aspirin [facility] [address]-74 Active not defined Azithromycin [facility] 90470557891 250 MG Orally June Active 2 tablets Once a day 2018 on the first day, then 1 tablet daily for 4 days Benzonatate [facility] 53425486635 200 MG Orally June Active 1 capsule Three times a 2018 day Metoprolol [facility] 11340880819 25 MG Orally Active take 1/2 Tartrate Twice a day (one-half) tablet by mouth once daily Results No Known Results Summary Purpose eClinicalWorks Submission
--- OUTSIDE RECORDS SUMMARY | 2019-07-10 07:33 | XMS REPORT ---
:1950 Author Organization eClinicalWorks Care Team Providers Name Role Phone Libra Pulido Provider Role Unavailable Allergies, Adverse Reactions, Alerts Substance Reaction Event Type N.K.D.A. Info Not Available Non Drug Allergy Problems Problem Type Condition Code Onset Dates Condition Status Problem Nicotine dependence F17.200 Active Problem HTN (hypertension) I10 Active Problem Screening for prostate cancer Z12.5 Active Assessment Medicare annual wellness visit, Z00.00 Active subsequent Problem Hyperlipemia E78.5 Active Problem Hyperthyroidism E05.90 Active Medications Medication Code Code Instructions Start End Status Dosage System Date Date Crestor [facility] 26176515847 40 MG Orally Active 1 tablet Once a day Metoprolol [facility] 97274927848 25 MG Orally Active take 1/2 Tartrate once a day (one-half) tablet Methimazole [facility] 83815527148 10 MG Orally Active take 1 twice a day tablet by mouth twice daily Multivitamin [facility] 84340845439 - Orally Active as Adults directed Vance Aspirin [facility] [address]-94 Active not defined Flonase [facility] 12662272858 50 MCG/ACT June Active 2 sprays Nasally Once a 2018 each day nostril prn Results No Known Results Summary Purpose eClinicalWorks Submission
--- OUTSIDE RECORDS SUMMARY | 2019-07-10 07:33 | XMS REPORT ---
:1950 Author Organization eClinicalWorks Care Team Providers Name Role Phone Rosa Elena Pulidoa Provider Role Unavailable Allergies, Adverse Reactions, Alerts Substance Reaction Event Type N.K.D.A. Info Not Available Non Drug Allergy Problems Problem Type Condition Code Onset Dates Condition Status Assessment Hyperlipemia E78.5 Active Assessment Hyperthyroidism E05.90 Active Assessment HTN (hypertension) I10 Active Problem Nicotine dependence F17.200 Active Problem HTN (hypertension) I10 Active Problem Screening for prostate cancer Z12.5 Active Assessment Encounter for immunization Z23 Active Problem Hyperlipemia E78.5 Active Problem Hyperthyroidism E05.90 Active Medications Medication Code Code Instructions Start End Status Dosage System Date Date Flonase [facility] 84021937037 50 MCG/ACT June Active 2 sprays Nasally Once a 2018 each day nostril prn Vance Aspirin [facility] [address]-75 Active not defined Crestor [facility] 13957491658 40 MG Orally Active 1 tablet Once a day Methimazole [facility] 35093877113 10 MG Orally Active take 1 twice a day tablet by mouth twice daily Metoprolol [facility] 67029158517 25 MG Orally Active take 1/2 Tartrate once a day (one-half) tablet Multivitamin [facility] 82463122510 - Orally Active as Adults directed Results No Known Results Immunizations Vaccine Administration Date FLUZONE HIGH DOSE OVER 65 Apr 06, 2019 Summary Purpose eClinicalWorks Submission
--- OUTSIDE RECORDS SUMMARY | 2019-07-10 07:33 | XMS REPORT ---
:1950 Author Organization eClinicalWorks Care Team Providers Name Role Phone Libra Pulido Provider Role Unavailable Allergies, Adverse Reactions, Alerts Substance Reaction Event Type N.K.D.A. Info Not Available Non Drug Allergy Problems Problem Type Condition Code Onset Dates Condition Status Assessment Sinus bradycardia R00.1 Active Problem Nicotine dependence F17.200 Active Problem HTN (hypertension) I10 Active Problem Screening for prostate cancer Z12.5 Active Assessment Syncope, unspecified syncope type R55 Active Problem Hyperlipemia E78.5 Active Problem Hyperthyroidism E05.90 Active Medications Medication Code Code Instructions Start End Status Dosage System Date Date Flonase [facility] 61168937502 50 MCG/ACT June Active 2 sprays Nasally Once a 2018 each day nostril prn Methimazole [facility] 08754166718 10 MG Orally Active take 1 twice a day tablet by mouth twice daily Metoprolol [facility] 61994372538 25 MG Orally Active take 1/2 Tartrate once a day (one-half) tablet Vance Aspirin [facility] [address]-21 [address] not [address] [facility] 61907105047 40 MG Orally Active 1 tablet Once a day Multivitamin [facility] 19037963784 - Orally Active as Adults directed Results No Known Results Summary Purpose eClinicalWorks Submission
[2019-07-10] MEDS ORDERED: MECLIZINE HCL 12.5 MG TAB ONE (08:10)
[2019-07-10] MEDS ORDERED: NA CHLORIDE 0.9% 1,000 ML ONE (08:10)
[2019-07-10 08:23] LABS: Protime INR 0.97
[2019-07-10 08:27] LABS: Absolute Lymphocytes (CBC) 1.3 K/uL (0.7-4.9); Basophils % 0.5 % (0-1.3); Hematocrit 39.9 % (39.6-49.0); Lymphocytes % 21.6 % (15.3-44.8); MPV 7.5 fL (7.6-11.3); RBC Red Blood Cell Count 4.29 M/uL (4.33-5.43)
[2019-07-10 08:32] LABS: BUN Blood Urea Nitrogen 12 mg/dL (7-18); Bicarbonate 29 mmol/L (21-32); Glucose Level 92 mg/dL (74-106); Potassium 4.2 mmol/L (3.5-5.1); Sodium Level 141 mmol/L (136-145); Troponin (Emerg Dept Use Only) < 0.02 ng/mL (0.0-0.045)
--- NOTE | 2019-07-10 08:39 | RAD REPORT ---
EXAM DESCRIPTION: CT - Head Brain Wo Cont - 07/10/2019 8:18 am CLINICAL HISTORY: Dizziness COMPARISON: 2019 TECHNIQUE: Computed axial tomography of the head was obtained. IV contrast was not requested. All CT scans are performed using dose optimization technique as appropriate and may include automated exposure control or mA/KV adjustment according to patient size. FINDINGS: An intracranial bleed is not seen . The ventricles are normal in caliber. No extra-axial fluid collection is noted. Fluid within the sinuses/ mastoids is not seen. IMPRESSION: No acute intracranial abnormality is seen. If patient's symptoms persist MRI of the bra in would be recommended.
[2019-07-10 09:10] LABS: Urine Blood NEGATIVE (NEG); Urine Glucose NEGATIVE (NEG); Urine Protein NEGATIVE (NEG); Urine Specific Gravity <1.005 (1.005-1.030)
--- NOTE | 2019-07-10 09:40 | RAD REPORT ---
EXAM DESCRIPTION: USCarotid Artery Bilateral07/10/2019 9:28 am CLINICAL HISTORY: syncope COMPARISON: None FINDINGS: The velocity of the right internal carotid artery equals 106 cm/sec. The right ICA/CCA rat io 1. The velocity of the left internal carotid artery equals 106 cm/sec. The left ICA/CCA ratio 1.1 Mild plaque is present within the carotid arteries. The vertebral arteries demonstrate antegrade flow IMPRESSION: Mild plaque within the carotid arteries without evidence of a hemodynamically significan t stenosis NASCET criteria used. Mild 0-49% stenosis Moderate 50-69% stenosis Severe 70-99% stenosis
--- NOTE | 2019-07-10 11:48 | RAD REPORT ---
EXAM DESCRIPTION: MRI - Brain Wo Cont - 07/10/2019 11:31 am CLINICAL HISTORY: Syncope/dizziness COMPARISON: 07/10/2019 TECHNIQUE: Axial, sagittal, and coronal magnetic images of the brain were obtained. Contrast was not requested FINDINGS: No significant abnormal signal within the brain noted. Diffusion-weighted/ADC mapping does not reveal evidence of acute infarction. The ventricles are normal caliber. An extra-axial fluid collection is not present Fluid within the sinuses/mastoids is not noted IMPRESSION: No acute abnormality is displayed
--- NOTE | 2019-07-10 11:52 | ER ---
Nurse's Notes [facility] Name: Erick Horn Age: 68 yrs Sex: Male : 1950 Arrival Date: 07/10/2019 Time: 07:34 Bed 13 Private MD: Diagnosis: Dizziness and giddiness;Vertigo Presentation: 07/09 07:35 Chief complaint: EMS states: pt states he was at work and 20 minutes prior to our tw2 arrival he got lightheaded and has some dizziness, said this happened in March and they never got to the bottom of it, he was a little dizzy getting onto the stretcher, denies pain, denies sob, vs stable bgl 107, we started a little bit of NS bolus. Coronavirus screen: The patient has NOT traveled to a country currently being monitored by the CDC within the last 14 days. Ebola Screen: Patient denies travel to an Ebola-affected area in the 21 days before illness onset. Initial Sepsis Screen: Does the patient meet any 2 criteria? No. Patient's initial sepsis screen is negative. Does the patient have a suspected source of infection? No. Patient's initial sepsis screen is negative. Risk Assessment: Do you want to hurt yourself or someone else? Patient reports no desire to harm self or others. 07:35 Method Of Arrival: EMS: [facility] tw2 07:35 Acuity: EDER 3 tw2 07:35 Onset of symptoms was July 10, 2019. tw2 Triage Assessment: 07:40 General: Appears in no apparent distress. Behavior is calm, cooperative, appropriate tw2 for age. Pain: Denies pain. Historical: - Allergies: 07:42 No Known Allergies; tw2 - Home Meds: 07:42 Metoprolol Tartrate Oral [Active]; Crestor Oral [Active]; tw2 - PMHx: 07:42 Hyperlipidemia; Hypertension; tw2 - PSHx: 07:42 None; tw2 - Immunization history:: Adult Immunizations. - Social history:: Smoking status: . - Family history:: not pertinent. - Hospitalizations: : No recent hospitalization is reported. Screenin:45 Abuse screen: Denies threats or abuse. Nutritional screening: No deficits noted. tw2 Tuberculosis screening: No symptoms or risk factors identified. Fall Risk None identified. Assessment: 08:53 Reassessment: Patient appears in no apparent distress at this time. No changes from tw2 previously documented assessment. Patient and/or family updated on plan of care and expected duration. Pain level reassessed. Patient is alert, oriented x 3, equal unlabored respirations, skin warm/dry/pink. 09:45 Reassessment: Patient appears in no apparent distress at this time. No changes from tw2 previously documented assessment. Patient and/or family updated on plan of care and expected duration. Pain level reassessed. Patient is alert, oriented x 3, equal unlabored respirations, skin warm/dry/pink. Patient states feeling better. Patient states symptoms have improved. 10:38 Reassessment: Patient appears in no apparent distress at this time. No changes from tw2 previously documented assessment. Patient and/or family updated on plan of care and expected duration. Pain level reassessed. Patient is alert, oriented x 3, equal unlabored respirations, skin warm/dry/pink. 11:34 Reassessment: pt still in MRI at this time, not available for vs. tw2 11:53 Reassessment: Patient appears in no apparent distress at this time. No changes from tw2 previously documented assessment. Patient and/or family updated on plan of care and expected duration. Pain level reassessed. Patient is alert, oriented x 3, equal unlabored respirations, skin warm/dry/pink. provider at bedside at this time. 12:02 Reassessment: Patient appears in no apparent distress at this time. No changes from tw2 previously documented assessment. Patient and/or family updated on plan of care and expected duration. Pain level reassessed. Patient is alert, oriented x 3, equal unlabored respirations, skin warm/dry/pink. Vital Signs: 07:35 BP 128 / 72; Pulse 68; Resp 14; Temp 98.1(O); Pulse Ox 98% on R/A; Weight 91.17 kg (R); tw2 Height 6 ft. 1 in. (185.42 cm) (R); Pain 0/10; 08:30 BP 121 / 76; Pulse 70; Resp 17; Pulse Ox 97% on R/A; tw2 09:44 BP 132 / 70; Pulse 56; Resp 17; Pulse Ox 99% on R/A; tw2 10:37 BP 121 / 69; Pulse 62; Resp 17; Pulse Ox 97% on R/A; tw2 07:35 Body Mass Index 26.52 (91.17 kg, 185.42 cm) tw2 ED Course: 07:34 Patient arrived in ED. tw2 07:34 José Mullen MD is Attending Physician. rn 07:39 Triage completed. tw2 07:39 Arm band placed on. tw2 07:50 Safety checks:. Bed in low position. Call light in reach. Side rails up X 1. Side rails jp3 up X2. Warm blanket given. Verbal reassurance given. dough scaler and mixer on. Pulse ox on. NIBP on. 07:55 Maintain EMS IV. Dressing intact. Good blood return noted. Site clean \T\ dry. Gauge \T\ alida 3 site: 20 gauge in RAC. Patient maintains SpO2 saturation greater than 95% on room air. 08:00 Initial lab(s) drawn, by me, sent to lab. jp3 08:06 Phyllis Mendoza RN is Primary Nurse. tw2 08:10 EKG done, by ED staff, reviewed by José Mullen MD. jp3 08:20 CT Head Brain wo Cont In Process Unspecified. EDMS 09:28 Carotid Artery Bilateral US In Process Unspecified. EDMS 11:26 Brain Wo Cont MRI In Process Unspecified. EDMS 11:51 Jose Kiser MD is Referral Physician. rn 11:52 No provider procedures requiring assistance completed. tw2 12:01 IV discontinued, intact, bleeding controlled, No redness/swelling at site. tw2 12:01 Pressure dressing applied. tw2 Administered Medications: 08:15 Drug: Meclizine 50 mg Route: PO; tw2 09:55 Follow up: Response: No adverse reaction tw2 08:15 Drug: NS 0.9% 1000 ml Route: IV; Rate: 1000 ml; Site: left antecubital; tw2 10:00 Follow up: Response: No adverse reaction; IV Status: Completed infusion; IV Intake: tw2 1000ml 11:40 Follow up: Response: No adverse reaction; IV Status: Completed infusion; IV Intake: tw2 1000ml Intake: 10:00 IV: 1000ml; Total: 1000ml. tw2 11:40 IV: 1000ml; Total: 2000ml. tw2 Output: 08:55 Urine: 1000ml (Voided); Total: 1000ml. tw2 Outcome: 11:51 Discharge ordered by . rn 11:52 Discharged to home ambulatory, with family. tw2 11:52 Condition: stable 11:52 Discharge instructions given to patient, family, Instructed on discharge instructions, follow up and referral plans. no drinking with medication, no driving heavy equipment, medication usage, Demonstrated understanding of instructions, follow-up care, medications, Prescriptions given X 1. 12:03 Patient left the ED. tw2 Signatures: Dispatcher [employer] EDMS José Mullen MD MD rn Wise, Tara, RN RN tw2 Horace Gudino jp3
--- NOTE | 2019-07-10 11:52 | EDPHYS ---
Physician Documentation [facility] Name: Erick Horn Age: 68 yrs Sex: Male : 1950 Arrival Date: 07/10/2019 Time: 07:34 Bed 13 Private MD: ED Physician Jsoé Mullen HPI: 07/09 07:51 This 68 yrs old Male presents to ER via EMS with complaints of Dizziness. rn 07:51 The patient presents with dizziness, sense of spinning. Onset: The symptoms/episode rn began/occurred 1.5 hour(s) ago. Modifying factors: The symptoms are alleviated by closing eyes, holding head still, the symptoms are aggravated by movement of head. Severity of symptoms: At their worst the symptoms were moderate in the emergency department the symptoms have improved. The patient has experienced a previous episode. Reports at work about 1.5 hours ago felt sensation of spinning and dizziness, lasted for about an hour, was just after having bowel movement. No fever. No headache. No focal neurological complaint. NO vomiting. No chest pain. No sob. Has happened once before, had w/u without clear diagnosis, had cardiac w/u including heart monitor for a week without arrhythmia. Currently feels fine.. Historical: - Allergies: 07:42 No Known Allergies; tw2 - Home Meds: 07:42 Metoprolol Tartrate Oral [Active]; Crestor Oral [Active]; tw2 - PMHx: 07:42 Hyperlipidemia; Hypertension; tw2 - PSHx: 07:42 None; tw2 - Immunization history:: Adult Immunizations. - Social history:: Smoking status: . - Family history:: not pertinent. - Hospitalizations: : No recent hospitalization is reported. ROS: 07:51 Constitutional: Negative for fever, chills, and weight loss, Eyes: Negative for injury, rn pain, redness, and discharge, Neck: Negative for injury, pain, and swelling, Cardiovascular: Negative for chest pain, palpitations, and edema, Respiratory: Negative for shortness of breath, cough, wheezing, and pleuritic chest pain, Abdomen/GI: Negative for abdominal pain, nausea, vomiting, diarrhea, and constipation, MS/Extremity: Negative for injury and deformity, Skin: Negative for injury, rash, and discoloration, Neuro: Negative for headache, weakness, numbness, tingling, and seizure. Exam: 07:51 Constitutional: This is a well developed, well nourished patient who is awake, alert, rn and in no acute distress. Head/Face: Normocephalic, atraumatic. Eyes: Pupils equal round and reactive to light, extra-ocular motions intact. Lids and lashes normal. Conjunctiva and sclera are non-icteric and not injected. Cornea within normal limits. Periorbital areas with no swelling, redness, or edema. ENT: MMM Neck: Trachea midline, no thyromegaly or masses palpated, and no cervical lymphadenopathy. Supple, full range of motion without nuchal rigidity, or vertebral point tenderness. No Meningismus. Cardiovascular: Regular rate and rhythm. No pulse deficits. Respiratory: Lungs have equal breath sounds bilaterally, clear to auscultation. No increased work of breathing, no retractions or nasal flaring. Abdomen/GI: soft, non-tender Skin: Warm, dry, and no evidence of cellulitis. MS/ Extremity: Pulses equal, no cyanosis. Neurovascular intact. Full, normal range of motion. Equal circumference. Neuro: Awake and alert, GCS 15, oriented to person, place, time, and situation. Cranial nerves II-XII grossly intact. Motor strength 5/5 in all extremities. Sensory grossly intact. Cerebellar exam normal. Normal finger to nose and heel to sagastume. Vital Signs: 07:35 BP 128 / 72; Pulse 68; Resp 14; Temp 98.1(O); Pulse Ox 98% on R/A; Weight 91.17 kg (R); tw2 Height 6 ft. 1 in. (185.42 cm) (R); Pain 0/10; 08:30 BP 121 / 76; Pulse 70; Resp 17; Pulse Ox 97% on R/A; tw2 09:44 BP 132 / 70; Pulse 56; Resp 17; Pulse Ox 99% on R/A; tw2 10:37 BP 121 / 69; Pulse 62; Resp 17; Pulse Ox 97% on R/A; tw2 07:35 Body Mass Index 26.52 (91.17 kg, 185.42 cm) tw2 MDM: 07:34 Patient medically screened. rn 10:04 ED course: Pt has held blood thinner for a few days in preparation of GI procedures. . rn 10:06 ED course: Pt still asymptomatic, just waiting on MRI brain, if normal can dc home.. rn 11:50 Differential diagnosis: cardiac arrhythmia, CVA, generalized weakness, rn hyperventilation, hypovolemia, idiopathic dizziness, TIA, vertigo. Differential diagnosis: near-syncope. Data reviewed: vital signs, nurses notes. Data reviewed: lab test result(s), EKG, radiologic studies, CT scan, doppler, MRI, and as a result, I will discharge patient. Counseling: I had a detailed discussion with the patient and/or guardian regarding: the historical points, exam findings, and any diagnostic results supporting the discharge/admit diagnosis, lab results, radiology results, the need for outpatient follow up, to return to the emergency department if symptoms worsen or persist or if there are any questions or concerns that arise at home. Response to treatment: the patient's symptoms have markedly improved after treatment, the patient's symptoms have resolved after treatment, the patient's condition has returned to base line, the patient is now symptom free, and as a result, I will discharge patient. Special discussion: I discussed with the patient/guardian in detail that at this point there is no indication for admission to the hospital. It is understood, however, that if the symptoms persist or worsen the patient needs to return immediately for re-evaluation. Based on the history and exam findings, there is no indication for further emergent testing or inpatient evaluation. I discussed with the patient/guardian the need to see the neurologist for further evaluation of the symptoms. 07/09 07:48 Order name: Basic Metabolic Panel; Complete Time: 08:36 07/09 07:48 Order name: CBC with Diff; Complete Time: 08:36 07/09 07:48 Order name: Magnesium; Complete Time: 08:36 07/09 07:48 Order name: Protime (+inr); Complete Time: 08:36 07/09 07:48 Order name: Ptt, Activated; Complete Time: 08:36 07/09 07:48 Order name: Troponin (emerg Dept Use Only); Complete Time: 08:36 07/09 07:48 Order name: CT Head Brain wo Cont; Complete Time: 09:18 07/09 07:48 Order name: EKG; Complete Time: 07:49 07/09 07:48 Order name: Cardiac monitoring; Complete Time: 08:07/09 08:50 Order name: Carotid Artery Bilateral US; Complete Time: 11:50 rn 07/09 08:50 Order name: Brain Wo Cont MRI; Complete Time: 11:50 rn 07/09 09:04 Order name: Urine Dipstick--Ancillary (enter results); Complete Time: 09:18 bd 07/09 07:48 Order name: EKG - Nurse/Tech; Complete Time: 08:07 rn 07/09 07:48 Order name: IV Saline Lock; Complete Time: 08:14 rn 07/09 07:48 Order name: Labs collected and sent; Complete Time: 08:14 rn 07/09 07:48 Order name: NPO; Complete Time: 08:14 rn 07/09 07:48 Order name: O2 Per Protocol; Complete Time: 08:07 rn 07/09 07:48 Order name: O2 Sat Monitoring; Complete Time: 08:08 rn 07/09 07:48 Order name: Urine Dipstick-Ancillary (obtain specimen); Complete Time: 09:55 rn Administered Medications: 08:15 Drug: Meclizine 50 mg Route: PO; tw2 09:55 Follow up: Response: No adverse reaction tw2 08:15 Drug: NS 0.9% 1000 ml Route: IV; Rate: 1000 ml; Site: left antecubital; tw2 10:00 Follow up: Response: No adverse reaction; IV Status: Completed infusion; IV Intake: tw2 1000ml 11:40 Follow up: Response: No adverse reaction; IV Status: Completed infusion; IV Intake: tw2 1000ml Disposition: 07/10/19 11:51 Discharged to Home. Impression: Dizziness and giddiness, Vertigo. - Condition is Stable. - Discharge Instructions: Dizziness, Vertigo, Near-Syncope, [id number]. - Prescriptions for Meclizine 25 mg Oral Tablet - take 1 tablet by ORAL route every 8 hours As needed; 30 tablet. - Work release form, Medication Reconciliation Form, Thank You Letter, Antibiotic Education, Prescription Opioid Use form. - Follow up: Jose Kiser MD; When: As needed; Reason: Further diagnostic work-up, Recheck today's complaints, Re-evaluation by your physician. - Problem is new. - Symptoms have improved. Signatures: Dispatcher [employer] EDMS José Mullen MD MD rn Wise, Tara, RN RN tw2 Corrections: (The following items were deleted from the chart) 12:03 11:51 07/10/2019 11:51 Discharged to Home. Impression: Dizziness and giddiness; tw2 Vertigo. Condition is Stable. Forms are Medication Reconciliation Form, Thank You Letter, Antibiotic Education, Prescription Opioid Use. Follow up: Jose Kiser; When: As needed; Reason: Further diagnostic work-up, Recheck today's complaints, Re-evaluation by your physician. Problem is new. Symptoms have improved. rn
[2019-07-10 12:09] VITALS: TEMP 98.1
--- NOTE | 2019-07-10 12:12 | EKG ---
Test Date: 2019-07-10 Test Time: 08:06:43 Practice Administrator: LYDIA MEASUREMENT RESULTS: Intervals: Rate: 67 NJ: 178 QRSD: 86 QT: 366 QTc: 386 [place]: P: 28 NJ: 178 QRS: 24 T: 36 INTERPRETIVE STATEMENTS: Sinus rhythm with premature atrial complexes Otherwise normal ECG Compared to ECG 03/12/2019 13:09:32 Atrial premature complex(es) now present Sinus bradycardia no longer present Electronically Signed On 07-10-19 12:11:29 CDT by Harley Merida
[2019-07-10 12:13] VITALS: BP 121/69; O2SAT 97
== END 2019-07-10 12:03 | disposition home or self-care (01) ==
LOC: ER 07:28
DX: R42 Dizziness and giddiness (principal); I10 Essential (primary) hypertension; E78.5 Hyperlipidemia, unspecified
CPT/HCPCS: 96361; 93005; 85025; 80048; 36415; 83735; 85610; 85730; 81003; 84484; 70450; 93880; 70551; 96360; 99285; J7030; J8597

== ENCOUNTER 2020-07-09 02:48 | Emergency (ER) | payer OTHER ==
--- OUTSIDE RECORDS SUMMARY | 2020-07-09 02:51 | XMS REPORT | Continuity of Care Document ---
:1950 Author Organization [facility] t Address [address] [place] [address] Care Team Providers Name Role Phone Teddy HORN Attending Clinician Unavailable Problems This patient has no known problems. Allergies, Adverse Reactions, Alerts This patient has no known allergies or adverse reactions. Medications Ordered Filled Start Stop Current Ordering Indication Dosage Frequency Signature Comments Components Source Medication Medication Date Date Medication? Clinician (SIG) Name Name Flonase Flonase Yes Libra [address] [facility] [address] [facility] [place] each [facility] - 00:[facility]: nostril [facility] 00 [facility]n l [facility] Methimazole Methimazole Yes Libra take [address] [facility] [place] tablet by [facility] - mouth [facility] twice l daily [facility] ent Clinics Crestor Crestor Yes Libra [address] [facility] [place] [facility] - [facility] ent [facility] Multivitami Multivitami Yes Libra as [facility] n Adults n Adults [place] directed Alejandra kes - Memoria l [facility] ent Clinics Metoprolol Metoprolol Yes Libra take 1/[address] [facility] [address] Tartrate Tartrate [place] (one-half) [facility] - tablet [facility] l [facility] ent [facility] Vance Vance Yes Libra not [facility] Aspirin Aspirin [place] defined [facility] - [facility] Clinics Immunizations Ordered Filled Immunization Date Status Comments Sourc e Immunization Name Name FLUZONE HIGH DOSE FLUZONE HIGH DOSE 2019-04-[address] [facility] - OVER 65 OVER 65 00:00:00 [facility] Procedures This patient has no known procedures. Encounters Start End Encounter Admission Attending Care Care Encounter Source Date/Time Date/Time Type Type Clinicians Facility Department ID 2020-04-11 2020-04-[address] [facility] [id number] [facility] Clin[facility] 2019-10-05 2019-10-05 [facility] [id number] 09:40[facility] 09:40:[address] [facility] Medicine Medicine Outpati ent Clinics 2019-07-16 2019-07-16 [facility] [id number] [address] 13:20[facility]00 13:20:00 [facility] Medicine Outpati ent Clinics 2019-04-06 2019-04-06 [facility] [id number] 08:40[facility]00 08:40:00 [facility] Medicine Outpati ent Clinics 2019-03-19 2019-03-19 [facility] [id number] 15:00:00 15:00:00 [facility] Medicine Outpati ent Clinics 2019-03-13 2019-03-13 [facility] [id number] 13:20:00 13:20:00 [facility] Medicine Outpati ent Clinics 2018-10-13 2018-10-13 [facility] [id number] 10:20:00 10:20:00 [facility] Medicine Outpati ent Clinics 2018-07-17 2018-07-17 [facility] [id number] 10:15:00 10:15:00 t [facility] l Outpati ent Clinics 2018-05-10 2018-05-10 [facility] [id number] 16:37:00 16:37:00 [facility] Medicine Outpati ent Clinics Results Test Description Test Time Test Comments Results Result Sourc e Comments CHEST 2 VIEWS 2019-10-16 10:42:00 [facility] [address] [address] Patient Name: MYKEL DAVENPORT MR #: [id number] : 1950 Age/Sex: 69/M Req #: [id number] Adm Physician: Ordered by: KRISTAN HORN MD Report #: [id number] Location: OR Room/Bed: Procedure: [id number] DX/CHEST 2 VIEWS Exam Date: 10/16/19 Exam Time: 0740 REPORT STATUS: Signed TECHNIQUE: Frontal and lateral views of the chest. INDICATION: 69-year-old man for day surgery. COMPARISON: None. FINDINGS: LINES/TUBES: None. LUNGS: The lungs are well inflated and clear. PLEURA: No pleural effusion or pneumothorax. HEART AND MEDIASTINUM: The cardiomediastinal silhouette is within normal limits. SOFT TISSUES AND BONES: Degenerative changes of the thoracic spine. Soft tissues are unremarkable. IMPRESSION: No acute cardiopulmonary abnormalities. Signed by: Roger Hoffmann MD on 10/16/2019 10:43 AM Dictated By: ROGER HOFFMANN MD 104 Transcribed By: GEMMA on 10/16/19 104 COPY TO: KRISTAN HORN MD
[2020-07-09] MEDS ORDERED: MORPHINE 4 MG/ML SYR ONE (03:57)
[2020-07-09] MEDS ORDERED: NA CHLORIDE 0.9% 1,000 ML ONE (03:58)
[2020-07-09] MEDS ORDERED: ONDANSETRON 4 MG/2 ML VIAL ONE (03:58)
[2020-07-09 04:03] LABS: Protime INR 0.9
[2020-07-09 04:04] LABS: Absolute Lymphocytes (CBC) 1.3 K/uL (0.7-4.9); Basophils % 0.5 % (0-1.3); Hematocrit 43.4 % (39.6-49.0); Lymphocytes % 22.5 % (15.3-44.8); MPV 7.7 fL (7.6-11.3); RBC Red Blood Cell Count 4.74 M/uL (4.33-5.43)
[2020-07-09 04:19] LABS: ALT/SGPT 42 U/L (12-78); AST/SGOT 19 U/L (15-37); Alkaline Phosphatase 123 U/L (45-117); BUN Blood Urea Nitrogen 21 mg/dL (7-18); Bicarbonate 27 mmol/L (21-32); Bilirubin Direct 0.2 mg/dL (0-0.2); Bilirubin Total 0.6 mg/dL (0.2-1.0); Glucose Level 120 mg/dL (74-106); Magnesium 2.1 mg/dL (1.8-2.4); NT PRO-BNP 26 pg/mL (<125); Potassium 4.4 mmol/L (3.5-5.1); Protein, Total 7.3 g/dL (6.4-8.2); Sodium Level 142 mmol/L (136-145); Troponin (Emerg Dept Use Only) < 0.02 ng/mL (0.0-0.045)
[2020-07-09 05:14] LABS: SARS-COV-2 RT PCR NEGATIVE (NEGATIVE)
[2020-07-09 06:05] LABS: Lipase 194 U/L (73-393)
--- NOTE | 2020-07-09 07:04 | EDPHYS ---
Physician Documentation [facility] Name: Erick Horn Age: 69 yrs Sex: Male : 1950 Arrival Date: 07/09/2020 Time: 02:50 Bed 13 Private MD: ED Physician Jake Trinidad HPI: 07/09 04:02 This 69 yrs old Male presents to ER via Ambulatory with complaints of mh7 Shortness Of Breath, Nausea, Back Pain, Fever. 04:02 The patient has shortness of breath at rest. Onset: The symptoms/episode began/occurred mh7 today. Duration: The symptoms are intermittent, with no pattern. The patient's shortness of breath is aggravated by nothing, is alleviated by nothing. Associated signs and symptoms: Pertinent positives: nausea, back pain, chills, Pertinent negatives: chest pain, non-productive cough, productive cough, diaphoresis, dizziness, fever, hemoptysis, loss of consciousness, numbness in extremities, visual changes, vomiting. Severity of symptoms: At their worst the symptoms were moderate today, in the emergency department the symptoms are unchanged. Historical: - Allergies: 03:09 No Known Allergies; wh - Home Meds: 07:21 Crestor Oral [Active]; Metoprolol Tartrate Oral [Active]; mg2 - PMHx: 03:09 Hyperlipidemia; Hypertension; wh - Immunization history:: Adult Immunizations up to date. - Social history:: Smoking status: Patient reports the use of cigarette tobacco products, smokes one-half pack cigarettes per day. ROS: 04:02 Eyes: Negative for injury, pain, redness, and discharge, ENT: Negative for injury, mh7 pain, and discharge, Neck: Negative for injury, pain, and swelling, Cardiovascular: Negative for chest pain, palpitations, and edema, : Negative for injury, bleeding, discharge, and swelling, MS/Extremity: Negative for injury and deformity, Skin: Negative for injury, rash, and discoloration, Neuro: Negative for headache, weakness, numbness, tingling, and seizure, Psych: Negative for depression, anxiety, suicide ideation, homicidal ideation, and hallucinations, Allergy/Immunology: Negative for hives, rash, and allergies, Endocrine: Negative for neck swelling, polydipsia, polyuria, polyphagia, and marked weight changes, Hematologic/Lymphatic: Negative for swollen nodes, abnormal bleeding, and unusual bruising. Exam: 04:02 Head/Face: Normocephalic, atraumatic. Eyes: Pupils equal round and reactive to light, mh7 extra-ocular motions intact. Lids and lashes normal. Conjunctiva and sclera are non-icteric and not injected. Cornea within normal limits. Periorbital areas with no swelling, redness, or edema. Neck: Trachea midline, no thyromegaly or masses palpated, and no cervical lymphadenopathy. Supple, full range of motion without nuchal rigidity, or vertebral point tenderness. No Meningismus. Chest/axilla: Normal chest wall appearance and motion. Nontender with no deformity. No lesions are appreciated. Cardiovascular: Regular rate and rhythm with a normal S1 and S2. No gallops, murmurs, or rubs. Normal PMI, no JVD. No pulse deficits. Respiratory: Lungs have equal breath sounds bilaterally, clear to auscultation and percussion. No rales, rhonchi or wheezes noted. No increased work of breathing, no retractions or nasal flaring. Abdomen/GI: Soft, non-tender, with normal bowel sounds. No distension or tympany. No guarding or rebound. No evidence of tenderness throughout. Back: No spinal tenderness. No costovertebral tenderness. Full range of motion. Skin: Warm, dry with normal turgor. Normal color with no rashes, no lesions, and no evidence of cellulitis. MS/ Extremity: Pulses equal, no cyanosis. Neurovascular intact. Full, normal range of motion. Neuro: Awake and alert, GCS 15, oriented to person, place, time, and situation. Cranial nerves II-XII grossly intact. Motor strength 5/5 in all extremities. Sensory grossly intact. Cerebellar exam normal. Normal gait. Psych: Awake, alert, with orientation to person, place and time. Behavior, mood, and affect are within normal limits. 04:02 Constitutional: The patient appears in no acute distress, alert, awake, uncomfortable. Vital Signs: 03:06 BP 150 / 97; Pulse 75; Resp 18; Pulse Ox 96% ; Weight 92.99 kg; Height 6 ft. 1 in. wh (185.42 cm); 04:29 BP 141 / 85; Pulse 70; Resp 17; Pulse Ox 98% ; rr5 04:47 Temp 98.3; rr5 05:30 BP 155 / 80; Pulse 75; Resp 19; Pulse Ox 98% ; rr5 06:30 BP 146 / 89; Pulse 70; Resp 16; Pulse Ox 100% ; rr5 07:17 BP 135 / 85; Pulse 80; Resp 18; Temp 98; Pulse Ox 100% on R/A; Pain 0/10; mg2 03:06 Body Mass Index 27.05 (92.99 kg, 185.42 cm) wh MDM: 06:59 Differential diagnosis: Anemia Anxiety Reaction asthma, Bronchitis CHF exacerbation, mh7 Chronic Obstructive Pulmonary Disease Myocardial Infarction pneumonia, Pneumothorax Psychogenic pulmonary edema, Pulmonary Embolism reactive airway disease. Data reviewed: vital signs, nurses notes, EMS record, lab test result(s), amylase and lipase, cardiac enzymes, CBC, electrolytes, urinalysis, EKG, radiologic studies, CT scan, plain films. Data interpreted: Pulse oximetry: on room air is 98 %. Interpretation: normal. Counseling: I had a detailed discussion with the patient and/or guardian regarding: the historical points, exam findings, and any diagnostic results supporting the discharge/admit diagnosis, the presence of at least one elevated blood pressure reading (>120/80) during this emergency department visit, lab results, radiology results, the need for outpatient follow up, to return to the emergency department if symptoms worsen or persist or if there are any questions or concerns that arise at home. Response to treatment: the patient's symptoms have resolved after treatment, the patient's blood pressure is in an acceptable range, mental status has returned to baseline, the patient no longer shows bradycardia, the patient is not short of breath, the patient is not tachycardic, the patient's pain is gone, the patient's temperature has normalized, the patient is now symptom free, patient is well hydrated. ED course: NAD, VSS, no focal neurological deficits. Patient wants to go home now. . 07:03 Patient medically screened. [facility] 07:16 Refusal of service: The patient/guardian displays adequate decision making capability [facility] and despite a detailed discussion of alternatives, benefits, risks, and consequences refuses: Admission to the hospital for further work-up and treatment. 07/09 03:06 Order name: Basic Metabolic Panel [facility] 07/09 03:06 Order name: CBC with Diff [facility] 07/09 03:06 Order name: LFT's [facility] 07/09 03:06 Order name: Magnesium [facility] 07/09 03:06 Order name: NT PRO-BNP [facility] 07/09 03:06 Order name: PT-INR [facility] 07/09 03:06 Order name: Troponin (emerg Dept Use Only) [facility] 07/09 03:06 Order name: Blood Culture Adult (2) [facility] 07/09 03:06 Order name: Lactate; Complete Time: 05:01 [facility] 07/09 03:06 Order name: Procalcitonin; Complete Time: 05:01 [facility] 07/09 03:06 Order name: Basic Metabolic Panel; Complete Time: 06:30 EDMS 07/09 03:06 Order name: CBC with Automated Diff; Complete Time: 04:10 EDMS 07/09 03:06 Order name: XRAY Chest (1 view) [facility] 07/09 03:06 Order name: EKG; Complete Time: 03:07 [facility] 07/09 03:06 Order name: Cardiac monitoring; Complete Time: 04:30 [facility] 07/09 03:06 Order name: Liver (Hepatic) Function; Complete Time: 06:30 EDMS 07/09 03:06 Order name: Magnesium; Complete Time: 06:30 EDMS 07/09 03:06 Order name: NT PRO-BNP; Complete Time: 06:30 EDMS 07/09 03:06 Order name: Protime (+INR); Complete Time: 04:10 EDMS 07/09 03:07 Order name: Troponin (Emerg Dept Use Only); Complete Time: 06:30 EDMS 07/09 04:01 Order name: CT Chest For PE Angio [facility] 07/09 04:01 Order name: CT Abd/Pelvis - IV Contrast Only [facility] 07/09 05:14 Order name: COVID-19/FLU A+B; Complete Time: 05:37 EDMS 07/09 05:59 Order name: Lipase; Complete Time: 06:30 EDMS 07/09 03:06 Order name: EKG - Nurse/Tech; Complete Time: 04:30 [facility] 07/09 03:06 Order name: IV Saline Lock; Complete Time: 04:30 [facility] 07/09 03:06 Order name: Labs collected and sent; Complete Time: 04:30 [facility] 07/09 03:06 Order name: O2 Per Protocol; Complete Time: 04:47 mh7 07/09 03:06 Order name: O2 Sat Monitoring; Complete Time: 04:47 mh7 Administered Medications: 03:53 Drug: Zofran (Ondansetron) 4 mg Route: IVP; Site: right antecubital; rr5 05:00 Follow up: Response: No adverse reaction rr5 03:53 Drug: NS 0.9% 1000 ml Route: IV; Rate: 1 bolus; Site: right antecubital; rr5 06:39 Follow up: Response: No adverse reaction; IV Status: Completed infusion; IV Intake: rr5 1000ml 03:55 Drug: morphine 4 mg {Note: rass 0.} Route: IVP; Site: right antecubital; rr5 05:00 Follow up: Response: No adverse reaction; RASS: Alert and Calm (0) rr5 Disposition: 07/09/20 07:03 Discharged to Home. Impression: Back Pain. - Condition is Stable. - Discharge Instructions: Back Pain, Adult, [employer]. - Medication Reconciliation Form, Thank You Letter, Antibiotic Education, Prescription Opioid Use form. - Follow up: Private Physician; When: 1 - 2 days; Reason: Worsening of condition, Recheck today's complaints, Continuance of care, Re-evaluation by your physician. - Problem is new. - Symptoms are resolved. Signatures: Dispatcher [employer] EDUT Lashawn Amaral RN RN Guillermo Walker RN RN [facility] Miki Sparks RN RN rr5 Jake Trinidad MD MD 7 Corrections: (The following items were deleted from the chart) 04:10 03:07 Influenza Screen (A \T\ B)+BA.LAB.BRZ ordered. EDUT EDMS 04:11 03:07 CORONAVIRUS+MR.LAB.BRZ ordered. EDUT EDMS 05:58 05:55 LIPASE+C.LAB.BRZ ordered. [facility] EDMS 07:04 07:03 07/09/2020 07:03 Discharged to Home. Impression: Back Pain; Dyspnea-Resolved. mh7 Condition is Stable. Forms are Medication Reconciliation Form, Thank You Letter, Antibiotic Education, Prescription Opioid Use. Follow up: Private Physician; When: 1 - 2 days; Reason: Worsening of condition, Recheck today's complaints, Continuance of care, Re-evaluation by your physician. Problem is new. Symptoms are resolved. mh7 07:18 07:04 07/09/2020 07:03 Discharged to Home. Impression: Back Pain. Condition is Stable. mg2 Discharge Instructions: Back Pain, Adult, [id number]. Forms are Medication Reconciliation Form, Thank You Letter, Antibiotic Education, Prescription Opioid Use. Follow up: Private Physician; When: 1 - 2 days; Reason: Worsening of condition, Recheck today's complaints, Continuance of care, Re-evaluation by your physician. Problem is new. Symptoms are resolved. mh7
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
--- NOTE | 2020-07-09 10:03 | RAD REPORT ---
EXAM DESCRIPTION: CT Angiography Chest With Intravenous Contrast CLINICAL HISTORY: The patient is 69 years old and is Male; SOB TECHNIQUE: Axial computed tomographic angiography images of the chest with intravenous contrast. S agittal and coronal reformatted images were created and reviewed. This CT exam was performed using one or more of the following dose reduction techniques: automated exposure control, adjustment of t he mA and/or kV according to patient size, and/or use of iterative reconstruction technique. MIP re constructed images were created and reviewed. COMPARISON: No relevant prior studies available. FINDINGS: Pulmonary arteries: Unremarkable. No pulmonary embolism. Aorta: No acute findings. No thoracic aortic aneurysm. Lungs: Unremarkable. No mass. No consolidation. Pleural space: Unremarkable. No significant effusion. No pneumothorax. Heart: Unremarkable. No cardiomegaly. No significant pericardial effusion. No evidence of RV dysfunction. Bones/joints: No acute fracture. No dislocation. Soft tissues: Unremarkable. Lymph nodes: Unremarkable. No enlarged lymph nodes. Gallbladder and bile ducts: There is a high density focus in the gallbladder fossa which may rep resent a gallstone. IMPRESSION: No acute finding. No evidence of pulmonary embolism. Electronically signed by: Roly Paul MD 07/09/2020 4:59 AM PROGRAM ENGINEER Due to temporary technical issues with the PACS/Fluency reporting system, reports are being signed by the in house radiologist without review as a courtesy to ensure prompt reporting. The interpreting r adiologist is fully responsible for the content of the report.
--- NOTE | 2020-07-09 10:25 | RAD REPORT ---
EXAM DESCRIPTION: CT Abdomen and Pelvis With Intravenous Contrast CLINICAL HISTORY: The patient is 69 years old and is Male; Abd pain;Flank pain TECHNIQUE: Axial computed tomography images of the abdomen and pelvis with intravenous contrast. S agittal and coronal reformatted images were created and reviewed. This CT exam was performed using one or more of the following dose reduction techniques: automated exposure control, adjustment of t he mA and/or kV according to patient size, and/or use of iterative reconstruction technique. COMPARISON: No relevant prior studies available. FINDINGS: Lung bases: Unremarkable. No mass. No consolidation. ABDOMEN: Liver: Unremarkable. No mass. Gallbladder and bile ducts: There is a 9 mm gallstone which appears to be near the junction of t he cystic duct and common bile duct. The common bile duct is mildly dilated to 9 mm at the level of the pancreas, similar to prio r. Pancreas: Prominent pancreatic duct. No mass. Spleen: Unremarkable. No splenomegaly. Adrenals: Unremarkable. No mass. Kidneys and ureters: 1.3 cm simple cyst in the left kidney which requires no imaging follow-up. Small low-density lesion in the right kidney which is too small to fully characterize but beka scott represents a cyst. ACR White Paper guidelines (Herts, et al. JACR 2018; 15(2):264-273) suggest no follow-up is necessary. Stomach and bowel: Similar-appearing duodenal diverticulum near the pancreatic head. No obstruction. No mucosal thickening. PELVIS: Appendix: The appendix is normal. Bladder: Unremarkable. No mass. Reproductive: Unremarkable as visualized. ABDOMEN and PELVIS: Intraperitoneal space: Unremarkable. No free air. No significant fluid collection. Bones/joints: No acute fracture. No dislocation. Soft tissues: Unremarkable. Vasculature: Unremarkable. No abdominal aortic aneurysm. Lymph nodes: Unremarkable. No enlarged lymph nodes. IMPRESSION: 9 mm gallstone which appears to be near the junction of the cystic duct and common bile duct. Electronically signed by: Roly Paul MD 07/09/2020 5:19 AM HOSPICE NURSE Due to temporary technical issues with the PACS/Fluency reporting system, reports are being signed by the in house radiologist without review as a courtesy to ensure prompt reporting. The interpreting r adiologist is fully responsible for the content of the report.
--- NOTE | 2020-07-09 11:39 | RAD REPORT ---
EXAM DESCRIPTION: Chest Radiography COMPARISON: None. CLINICAL HISTORY: [facility] MAIN SOB FINDINGS: A single AP view of the chest demonstrates a normal cardiomediastinal silhouette. No pneumothorax or pleural effusion. Mild bilateral perihilar opacities are present. There is a round 1.3 cm opacity projecting the left superior lung. Osseous structures are intact. IMPRESSION: 1. Mild bilateral perihilar opacities favor mild pulmonary edema. 2. 1.3 cm round opacity projecting over the superior left lung. This could represent a pulmonary nodu le. Recommend further evaluation with CT of the chest. Electronically signed by: Jaime Rajan MD 07/09/2020 4:16 AM CLINICAL PROGRAM DIRECTOR Due to temporary technical issues with the PACS/Fluency reporting system, reports are being signed by the in house radiologist without review as a courtesy to ensure prompt reporting. The interpreting r adiologist is fully responsible for the content of the report.
[2020-07-09 18:16] VITALS: BP 135/85; TEMP 98; O2SAT 100
--- NOTE | 2020-07-10 05:14 | EKG ---
Test Date: 2020-07-09 Test Time: 03:56:30 Codifier: MEASUREMENT RESULTS: Intervals: Rate: 69 [place]: 160 QRSD: 94 QT: 370 QTc: 396 [place]: P: [place]: 160 QRS: 68 T: 73 INTERPRETIVE STATEMENTS: Sinus rhythm with premature atrial complexes Otherwise normal ECG Compared to ECG 07/09/2020 03:19:27 Atrial premature complex(es) now present Electronically Signed On 07-10-20 05:11:30 TELEPHONE CLERK by Harley Merida
--- NOTE | 2020-07-10 05:15 | EKG ---
Test Date: 2020-07-09 Test Time: 03:19:27 Machine Stemmer: MEASUREMENT RESULTS: Intervals: Rate: 68 [place]: 168 QRSD: 86 QT: 364 QTc: 387 [place]: P: -27 [place]: 168 QRS: 70 T: 73 INTERPRETIVE STATEMENTS: Normal sinus rhythm Normal ECG Compared to ECG 07/10/2019 08:06:43 Atrial premature complex(es) no longer present Electronically Signed On 07-10-20 05:11:34 NURSES' AIDE by Harley Merida
== END 2020-07-09 07:18 | disposition home or self-care (01) ==
LOC: ER 02:48
DX: M54.9 Dorsalgia, unspecified (principal); I10 Essential (primary) hypertension; E78.5 Hyperlipidemia, unspecified; F17.210 Nicotine dependence, cigarettes, uncomplicated; Z20.822 Contact with and (suspected) exposure to COVID-19
CPT/HCPCS: 93005 ×2; 87040 ×2; 85025; 80048; 36415; 83735; 85610; 80076; 83605; 84484; 83690; 84145; 83880; 0240U; 71275; 74177; 71045; Q9967; J7030; J2405; 82565; 96361; 96374; 96375; 99284

== ENCOUNTER 2020-08-13 07:27 | Day surgery (SDC) | payer OTHER ==
[2020-08-13] MEDS ORDERED: BUPIVACAINE 0.25% PF 30 ML VIAL ONE (07:56)
[2020-08-13] MEDS ORDERED: Ringers Lactate 1,000 ML IV ONE ×2 (08:02→09:52)
[2020-08-13] MEDS ORDERED: CEFOXITIN/SWI 1gm 1 GM/10 ML SYR ONE (08:02)
[2020-08-13] MEDS ORDERED: ROCURONIUM 50 MG/5 ML VIAL IV ONE (08:53)
[2020-08-13] MEDS ORDERED: MIDAZOLAM HCL 2 MG/2 ML INJ ONE (08:53)
[2020-08-13] MEDS ORDERED: LIDOCAINE 2% MPF 5 ML VIAL ONE (08:53)
[2020-08-13] MEDS ORDERED: FENTANYL CITR 250 MCG/5 ML ONE (08:53)
[2020-08-13] MEDS ORDERED: propofoL 200 MG/20 ML VIAL IV ONE (08:53)
[2020-08-13] MEDS ORDERED: dexAMETHasone 10 MG/ML VIAL ONE (08:53)
[2020-08-13] MEDS ORDERED: HYDRALAZINE HCL 20 MG/ML VIAL ONE (09:49)
--- NOTE | 2020-08-13 10:32 | P.OP ---
Preoperative diagnosis: Chronic Cholecystitis with Cholelithiasis Postoperative diagnosis: Chronic Cholecystitis with Cholelithiasis Primary procedure: Laparoscopic Cholecystectomy with intraoperative cholangiogram Anesthesia: GETA + Local Estimated blood loss: <10 cc Specimen: Gallbladder Findings: Dilated Duct cystic and common bile duct, short cystic duct Complications: None Transferred to: Recovery Room Condition: Good
--- NOTE | 2020-08-13 11:01 | RAD REPORT ---
EXAM DESCRIPTION: RAD - Cholangiogram Oper-Xray Or - 08/13/2020 10:16 am FINDINGS: There were 4 portable C-arm views submitted from a fluoroscopic assisted intraoperative ch olangiogram. Common bile duct is dilated. No stricture, mass or intraluminal filling defect identifie d. Assessment is limited when only selected static images are available. Correlation is needed with find ings during real-time fluoroscopic assessment. Fluoro time was 103.9 seconds
--- NOTE | 2020-08-13 11:10 | OP ---
Date of Procedure: 08/13/2020 Surgeon: Morteza Garcia MD, Preoperative Diagnosis: Chronic cholecystitis with cholelithiasis. Postoperative Diagnosis: Chronic cholecystitis with cholelithiasis. Procedure Performed: Laparoscopic cholecystectomy with intraoperative cholangiogram. Anesthesia: General endotracheal plus local with 0.25% Marcaine without epinephrine. Estimated Blood Loss: Less than 2 mL. Specimen: Gallbladder. Findings: Intraoperative cholangiography and visual inspection showed a dilated cystic duct. Common bile duct was found to be quite dilated on imaging as well. Contrast filled to the duodenum and int o the ducts of the liver after contrast injection with Isovue 50% strength. Complications: None. Disposition: The patient was transferred to recovery room in good condition. Procedure In Detail: After informed consent was obtained, the patient was brought to the operating r oom, prepped and draped in the usual sterile fashion. After adequate anesthesia was achieved, suprau mbilical area was anesthetized with 0.25% Marcaine and sharply incised. A 5 mm 0 degree optical troc ar was introduced in the abdomen without evidence of complication. Insufflation was obtained to 15 m mHg at this time. No injury to vital structures upon entry to the abdomen. Three additional trocars were placed, 1 in the epigastrium and 2 in the right upper quadrant. These were all 5 mm trocars, p laced under direct visualization without evidence of complication. The umbilical trocar was then up- sized to a 12 mm under direct visualization without evidence of complication. The patient was positi oned head up right-side up position. Ratcheted graspers were used to grasp the patient's gallbladder at the fundus and placed towards the patient's right shoulder. At this point, I used electrocautery dissection to remove the omentum off the anterior surface of the gallbladder. There were significan t inflammatory changes down near the Delaney pouch of the gallbladder and omentum stuck to the liver requiring mobilization of omentum and scar tissue off the liver and off the anterior surface of the gallbladder. This meticulous dissection took an extended period of time; however, I visualized and jaimee hernandezetonized 2 structures into the gallbladder. These were identified as the cystic duct and cystic a rtery. I obtained a critical view of safety at this point and opted to perform the cholangiogram at this time. At this time, a Rich cholangiogram catheter was flushed appropriately and brought onto t he field. After inspection of the gallbladder, the cystic duct was found to be quite dilated and I c ould not visualize the common duct during this portion of the procedure. I therefore placed a Rich clamp across the proximal aspect of the gallbladder and deployed the needle and shot a cholangiogram at this point. Contrast was noted to be filling the spiral valves of the cystic duct and the distal aspect of the gallbladder which was found to be quite dilated and tortuous leading into a very dilate d common duct and contrast was noted to be flowing and filling into the duodenum at this point. I th en removed the needle at this point after assuring the cholangiogram had verified there were no filli ng defects at this point and the anatomy was visualized. I then removed the Rich clamp and proceede d to place double titanium clips over the dilated cystic duct. They did have good apposition, but th e duct was at the distal extent of the double titanium clips on the proximal side of the cystic duct. I placed double titanium clips on the cystic artery as well as on the proximal aspect and singly on the distal aspect of the cystic duct and cystic artery. I then used Endo Caron to ligate these 2 s tructures without evidence of complication. I then removed the gallbladder off the hepatic fossa. T here was a small arterial bleed from the midportion of the hepatic fossa, which was controlled with a single clip without evidence of complication. At this point, the area was inspected once again. Go od hemostasis was achieved without any additional hemostatic maneuvers. The gallbladder was removed from the hepatic fossa at this point in its entirety, placed in EndoCatch bag, removed the umbilical trocar and sent off for pathologic examination. The abdomen was then inspected once last time. The area was copiously irrigated multiple times. Clips were found to be in good anatomic position; howev er, I opted to place an Endoloop around the distal aspect of the cystic duct double clips at this poi nt. This was deployed without evidence of complication. The remaining suture was then trimmed and t he area was copiously irrigated at this point and good hemostasis was ensured at this point without a ny additional hemostatic maneuvers. There was no spillage of bile at this point and no obvious narro wing of the common duct at this point. The patient was positioned back in neutral position. The rem aining effluent was clear and suctioned out. The umbilical trocar was removed. The umbilical trocar site was closed using a Km-Janet suture passer with a 0 Vicryl in interrupted fashion with go od approximation tissues. The abdomen was completely desufflated under direct visualization without evidence of complication. All remaining trocars were removed. All skin incisions were copiously irr igated and closed with 4-0 Monocryl in a running fashion. Dermabond placed over top. The patient to lerated the procedure well without evidence of complication and transferred to PACU in good condition . All counts were correct at the end of the case. MANSOOR/KALEIGH Voice ID: [id number] Report ID: [id number]
[2020-08-13] MEDS ORDERED: ONDANSETRON 4 MG/2 ML VIAL ONE (11:14)
[2020-08-13] MEDS ORDERED: KETOROLAC 30 MG/ML INJ ONE (11:15)
[2020-08-13] MEDS ORDERED: MEPERIDINE HCL 25 MG/ML SYR ONE (11:27)
[2020-08-13] MEDS ORDERED: HYDROCODONE/APAP 7.5/325 MG TAB PO ONE (12:13)
[2020-08-13] MEDS ORDERED: HYDROCODONE/APAP 7.5/325 MG TAB ONE (12:30)
[2020-08-13 12:52] VITALS: BP 120/54; TEMP 97.3; O2SAT 96
== END 2020-08-13 13:30 | disposition home or self-care (01) ==
LOC: OR 07:27
PROVIDERS: ATTEND Surgery
PROC: BF03YZZ Plain Radiography of Gallbladder and Bile Ducts using Other Contrast (ICD-10-PCS; 2020-08-13)
PROC: 0FT44ZZ Resection of Gallbladder, Percutaneous Endoscopic Approach (ICD-10-PCS; principal; 2020-08-13 08:30)
DX: K80.10 Calculus of gallbladder with chronic cholecystitis without obstruction (principal); Z20.822 Contact with and (suspected) exposure to COVID-19
CPT/HCPCS: 88304; 74300; 47563; U0003; J0360; J2704; J2250; J3010; J1100; J2175; J7120 ×2; J2405

== ENCOUNTER 2021-04-20 07:45 | Day surgery (SDC) | payer OTHER ==
[2021-04-15 16:18] LABS: Absolute Lymphocytes (CBC) 1.9 K/uL (0.7-4.9); Lymphocytes % 35.4 % (15.3-44.8); MPV 7.2 fL (7.6-11.3); RBC Red Blood Cell Count 4.44 M/uL (4.33-5.43)
--- NOTE | 2021-04-15 16:23 | RAD REPORT ---
EXAM DESCRIPTION: Glenda Montano And Lat (2 Views)04/15/2021 4:14 pm CLINICAL HISTORY: Preop for hernia repair COMPARISON: June 2020 FINDINGS: The lungs are hyperaerated. The lungs appear clear of acute infiltrate. The heart is normal size IMPRESSION: No acute abnormalities displayed
[2021-04-15 16:38] LABS: Potassium 3.9 mmol/L (3.5-5.1)
[2021-04-20] MEDS ORDERED: Ringers Lactate 1,000 ML IV ONE ×2 (08:10→10:19)
[2021-04-20] MEDS ORDERED: CEFAZOLIN/SWI 2gm 2 GM/20 ML SYR ONE (08:11)
[2021-04-20] MEDS ORDERED: propofoL 200 MG/20 ML VIAL IV ONE (08:47)
[2021-04-20] MEDS ORDERED: MIDAZOLAM HCL 2 MG/2 ML INJ ONE (08:47)
[2021-04-20] MEDS ORDERED: dexAMETHasone 10 MG/ML VIAL ONE (08:47)
[2021-04-20] MEDS ORDERED: FENTANYL CITR 100 MCG/2 ML ONE (08:47)
[2021-04-20] MEDS ORDERED: LIDOCAINE 2% MPF 5 ML VIAL ONE (08:48)
[2021-04-20] MEDS ORDERED: ROCURONIUM 50 MG/5 ML VIAL IV ONE (08:48)
[2021-04-20] MEDS ORDERED: BUPIVACAINE 0.25% PF 10 ML VIAL ONE (08:55)
[2021-04-20] MEDS ORDERED: GLYCOPYRROLATE 0.2 MG/ML SYR ONE (09:46)
[2021-04-20] MEDS ORDERED: NEOSTIGMINE 1 MG/ML -5 ML ONE (09:46)
[2021-04-20] MEDS ORDERED: KETOROLAC 30 MG/ML INJ ONE (09:47)
--- NOTE | 2021-04-20 10:04 | P.OP ---
Preoperative diagnosis: Ventral Abdominal Hernia Postoperative diagnosis: Ventral Abdominal Hernia Primary procedure: Laparoscopic Ventral Hernia Repair with mesh Anesthesia: GETA + Local Estimated blood loss: <10cc Specimen: Hernia Contents Findings: ~ 2cm periumbilical ventral hernia Complications: None Implants: 15cm x [address] mesh with echo position Transferred to: Recovery Room Condition: Good
[2021-04-20] MEDS ORDERED: MEPERIDINE HCL 25 MG/ML SYR ONE (10:05)
[2021-04-20] MEDS ORDERED: MORPHINE 4 MG/ML SYR ONE (10:05)
[2021-04-20] MEDS ORDERED: ONDANSETRON 4 MG/2 ML VIAL ONE (10:05)
[2021-04-20] MEDS: FENTANYL CITR 100 MCG/2 ML ONE ×2 (10:10→10:15)
[2021-04-20] MEDS: HYDROMORPHONE HCL 1 MG/ML INJ ONE ×2 (10:20→10:30)
[2021-04-20 11:01] VITALS: BP 122/73; TEMP 97.2; O2SAT 98
[2021-04-20] MEDS ORDERED: HYDROCODONE/APAP 10/325 TAB ONE (11:14)
--- NOTE | 2021-04-20 11:15 | OP ---
Date of Procedure: 04/20/2021 Surgeon: Morteza Garcia MD, Preoperative Diagnosis: Ventral abdominal hernia. Postoperative Diagnosis: Ventral abdominal hernia. Procedure Performed: Laparoscopic ventral hernia repair with mesh. Anesthesia: General endotracheal plus local. Estimated Blood Loss: Less than 10 mL. Specimens: Hernia contents. Findings: Approximately 2 cm periumbilical hernia in the ventral midline abdomen. Complications: None. Implants: A 15 cm x [address] mesh with Echo Positioning System. Disposition: The patient was transferred to the recovery room in good condition. Procedure In Detail: After informed consent was obtained, the patient was brought to the operating r oom, prepped and draped in the usual sterile fashion after adequate anesthesia was achieved. An area of the left upper quadrant was anesthetized with 0.25% Marcaine and sharply incised. A 5 mm trocar was placed under direct visualization without evidence of complication into the abdomen. The abdomen was insufflated to 15 mmHg at this time. There was no injury to vital structure upon entry into the abdomen. At this point, additional trocar was placed in the left lower quadrant. This was similarl y anesthetized, sharply incised, and a 12 mm trocar was placed under direct visualization without severo dence of complication. I then inspected the patient's midline ventral abdomen, which was found to perez ve an approximately 2 to 3 cm hernia defect in the periumbilical position. LigaSure device used to t nolan the hernia contents out of the hernia sac and sweep it clean to allow for appropriate landing zon e. Preperitoneal fat was removed. Hernia contents were sent off for pathologic examination. After the abdomen was cleansed properly, I sized the mesh appropriately and placed. A 10 x [address] mesh with Echo Positioning System centrally positioned after making a stab incision in the midline at the supraumbilical position. I grasped the deployment system with a Km-Janet and deployed the balloon system at this point. I then centered the mesh appropriately and secured it cir cumferentially with a double crown absorbable fixation system. I removed the balloon deployment syst em and was found to be intact on the back table. At this point, I placed additional 30 tacks to the anterior abdominal wall with good apposition of the mesh to the anterior bowel wall. At this point, the abdomen was desufflated partially and I turned my attention toward the left lower quadrant insert ion site. The 12 mm trocar site was inspected, cleansed appropriately, and the trocar site was close d using a Km-Janet suture passer with 0 Vicryl in interrupted fashion with good approximation of tissues. The abdomen was then completely desufflated under direct vision without evidence of comp lication. The remaining trocars were removed. All skin incisions were copiously irrigated and close d with 4-0 Monocryl in a running fashion. Dermabond placed over top. The patient tolerated the proc edure well without evidence of complication and transferred to PACU in good condition. All counts we re correct at the end of the case. MANSOOR/KALEIGH Voice ID: [id number] Report ID: [id number]
== END 2021-04-20 11:43 | disposition home or self-care (01) ==
LOC: OR 07:45
PROVIDERS: ATTEND Surgery
PROC: 0WUF4JZ Supplement Abdominal Wall with Synthetic Substitute, Percutaneous Endoscopic Approach (ICD-10-PCS; principal; 2021-04-20 09:15)
DX: K43.9 Ventral hernia without obstruction or gangrene (principal); F17.210 Nicotine dependence, cigarettes, uncomplicated
CPT/HCPCS: 93005; 85025; 80048; 36415; 88302; 71046; 49652; U0003; J2704; J2250; J3010 ×2; J1100; J1170; J2710; J0690; J7120 ×2; J2405; J2175

== ENCOUNTER 2021-04-22 02:35 | Emergency (ER) | payer OTHER ==
--- OUTSIDE RECORDS SUMMARY | 2021-04-22 02:39 | XMS REPORT | Continuity of Care Document ---
:1950 Author Organization [facility] t Address [address] [place] [address] Care Team Providers Name Role Phone Teddy HORN Attending Clinician Unavailable Problems This patient has no known problems. Allergies, Adverse Reactions, Alerts This patient has no known allergies or adverse reactions. Medications Ordered Filled Start Stop Current Ordering Indication Dosage Frequency Signature Comments Components Source Medication Medication Date Date Medication? Clinician (SIG) Name Name Flomichaele Flonase Yes Libra [address] [facility] [address] [facility] [place] [facility] Methimazole Methimazole Yes Libra take [address] [facility] [place] tablet by [facility] - mouth [facility] twice l daily [facility] Crestor Crestor Yes Libra [address] [facility] [place] [facility] Multivitami Multivitami Yes Libra as [facility] Adults [place] directed Alejandra kes - [facility] Metoprolol Metoprolol Yes Libra take 1/[address] [facility] Tartrate Tartrate [place] (one-half) [facility] - tablet [facility] Vance Vance Yes Libra not [facility] Aspirin Aspirin [place] defined [facility] Immunizations Ordered Filled Immunization Date Status Comments Sourc e Immunization Name Name FLUZONE HIGH DOSE FLUZONE HIGH DOSE 2019-04-[address] [facility] Procedures This patient has no known procedures. Encounters Start End Encounter Admission Attending Care Care Encounter Source Date/Time Date/Time Type Type Clinicians Facility Department ID 2021-04-10 2021-04-10 ambulatory [facility] [id number] [facility] 2021-04-01 2021-04-01 amb[facility] [id number] [facility] 2020-10-10 2020-10-10 [facility] [id number] [facility] 2020-07-18 2020-07-18 Outpatient [facility] [id number] [facility] 2020-07-16 2020-07-16 [facility] [id number] [facility] 2020-07-10 2020-07-10 [facility] [id number] [facility] 2020-04-11 2020-04-11 [facility] [id number] [facility] 2019-10-05 2019-10-05 [facility] [id number] [facility] 09[facility] 09:40:00 [facility] Outpat[facility] Clin[facility] 2019-07-16 2019-07-16 [facility] [id number] [facility] 13:20[facility]00 13:20:00 [facility] Medicine Outpat[facility] ent Clinics 2019-04-06 2019-04-06 [facility] [id number] 08:40[facility]00 08:40:00 [facility] Medicine Outpati [facility] Clinics 2019-03-19 2019-03-19 [facility] [id number] 15:00[facility]00 15:00:00 [facility] 2019-03-13 2019-03-13 [facility] [id number] 13:20:00 13:20:00 [facility] 2018-10-13 2018-10-13 [facility] [id number] 10:20:00 10:20:00 [facility] 2018-07-17 2018-07-17 [facility] [id number] [address] 10:15:00 10:15:00 [facility] 2018-05-10 2018-05-10 [facility] [id number] 16:37:00 16:37:00 [facility] Results Test Description Test Time Test Comments Results Result Sourc e Comments CHEST 2 VIEWS 2019-10-16 10:42:00 [place] [address] Patient Name: MYKEL DAVENPORT MR #: [id number] : 1950 Age/Sex: 69/M Req #: [id number] Adm Physician: Ordered by: KRISTAN HORN MD Report #: [id number] Location: OR Room/Bed: Procedure: [id number] DX/CHEST 2 VIEWS Exam Date: 10/16/19 Exam [...] 10:43 AM Dictated By: ROGER HOFFMANN MD 1043 Transcribed By: GEMMA on 10/16/19 1043 COPY TO: KRISTAN HORN MD
[2021-04-22] MEDS ORDERED: ALBUTEROL 2.5 MG/3 ML NEB SOL ONE (02:57)
[2021-04-22] MEDS ORDERED: IPRATROPIUM BROM 0.5MG/2.5ML ONE (02:57)
[2021-04-22 03:41] LABS: Protime INR 0.95
[2021-04-22 03:42] LABS: Absolute Lymphocytes (CBC) 2.4 K/uL (0.7-4.9); Basophils % 0.5 % (0-1.3); Hematocrit 42.7 % (39.6-49.0); Lymphocytes % 25.5 % (15.3-44.8); MPV 7.3 fL (7.6-11.3); RBC Red Blood Cell Count 4.65 M/uL (4.33-5.43)
[2021-04-22 03:53] LABS: ALT/SGPT 101 U/L (12-78); AST/SGOT 37 U/L (15-37); Albumin 3.7 g/dL (3.4-5.0); Alkaline Phosphatase 101 U/L (45-117); BUN Blood Urea Nitrogen 15 mg/dL (7-18); Bicarbonate 28 mmol/L (21-32); Bilirubin Direct 0.2 mg/dL (0-0.2); Bilirubin Total 0.8 mg/dL (0.2-1.0); Glucose Level 102 mg/dL (74-106); Magnesium 2.2 mg/dL (1.8-2.4); NT PRO-BNP 346 pg/mL (<125); Potassium 3.8 mmol/L (3.5-5.1); Protein, Total 7.1 g/dL (6.4-8.2); Sodium Level 140 mmol/L (136-145); Troponin (Emerg Dept Use Only) < 0.02 ng/mL (0.0-0.045)
--- NOTE | 2021-04-22 06:34 | ER ---
Nurse's Notes [facility] Name: Erick Horn Age: 70 yrs Sex: Male : 1950 Arrival Date: 04/22/2021 Time: 02:44 Bed 6 Private MD: Diagnosis: Atelectasis;Cough Presentation: 04/22 02:44 Chief complaint: Patient states: Shortness of breath and cough that has significantly lp1 worsened this AM; Hx of hernia surgery by Dr. Garcia on 04/20/21. Coronavirus screen: At this time, the client does not indicate any symptoms associated with coronavirus-19. Ebola Screen: No symptoms or risks identified at this time. Risk Assessment: Do you want to hurt yourself or someone else? Patient reports no desire to harm self or others. Onset of symptoms was April 22, 2021. 02:44 Method Of Arrival: Wheelchair lp1 02:44 Acuity: EDER 2 lp1 03:19 Initial Sepsis Screen: Does the patient meet any 2 criteria? RR > 20 per min. Does the tw5 patient have a suspected source of infection? No. Patient's initial sepsis screen is negative. Triage Assessment: 03:18 General: Appears uncomfortable. General: Behavior is cooperative, appropriate for age, tw5 anxious. Respiratory: Reports shortness of breath Onset: The symptoms/episode began/occurred gradually, the patient has moderate shortness of breath. Historical: - Allergies: 02:45 No Known Allergies; lp1 - Home Meds: 02:45 None [Active]; lp1 - PMHx: 02:45 Hyperlipidemia; Hypertension; lp1 - PSHx: 02:45 Hernia Repair; lp1 - Immunization history:: Adult Immunizations up to date. - Social history:: Smoking status: Patient denies any tobacco usage or history of. Screenin:16 Abuse screen: Denies threats or abuse. Denies injuries from another. Nutritional tw5 screening: No deficits noted. Tuberculosis screening: No symptoms or risk factors identified. Fall Risk No fall in past 12 months (0 pts). Secondary diagnosis (15 points) IV access (20 points). Ambulatory Aid- None/Bed Rest/Nurse Assist (0 pts). Gait- Weak (10 pts.). Assessment: 03:16 General: Appears in no apparent distress. Behavior is calm, cooperative, appropriate tw5 for age. Pain: Complains of pain in chest Pain currently is 8 out of 10 on a pain scale. Cardiovascular: Rhythm is regular. Respiratory: Airway is patent Trachea midline Respiratory effort is shallow, Breath sounds are diminished in left posterior lower lobe, right posterior middle lobe and right posterior lower lobe. GI: abdominal binder. 03:37 General: Patient educated on deep breathing exercises.. tw5 Vital Signs: 02:44 Pulse 100; Pulse Ox 99% on R/A; Weight 91.63 kg (R); Height 6 ft. 1 in. (185.42 cm); lp1 03:16 BP 159 / 91; Pulse 75; Resp 22; Pulse Ox 99% on R/A; Pain 8/10; tw5 03:37 Temp 97.6(O); tw5 05:00 BP 151 / 78; Pulse 70; Resp 14; Pulse Ox 95% on R/A; sm5 06:00 BP 147 / 80; Pulse 72; Resp 17; Pulse Ox 95% on R/A; sm5 02:44 Body Mass Index 26.65 (91.63 kg, 185.42 cm) lp1 ED Course: 02:44 Patient arrived in ED. lp1 02:45 Triage completed. lp1 02:45 Arm band placed on left wrist. lp1 02:46 Jake Trinidad MD is Attending Physician. 7 02:55 Marly Shepherd is Primary Nurse. tw5 02:55 Patient has correct armband on for positive identification. Placed in gown. Bed in low tw5 position. Call light in reach. Side rails up X 1. Adult w/ patient. library monitor on. Pulse ox on. NIBP on. Door closed. Noise minimized. Moved to private room. Warm blanket given. Verbal reassurance given. Assisted to bedside commode. 02:55 EKG done, by ED staff, reviewed by Jake Trinidad MD. tw5 03:16 Initial lab(s) drawn, by me, sent to lab. COVID swab sent to lab. Inserted saline lock: tw5 20 gauge in right antecubital area, using aseptic technique. Blood collected. 03:21 COVID-19 (Coronavirus) Document "Date of Onset" if Symptomatic Sent. tw5 03:21 NT PRO-BNP Sent. tw5 03:21 Liver (Hepatic) Function Sent. tw5 03:21 Magnesium Sent. tw5 03:21 CBC with Automated Diff Sent. tw5 03:21 Basic Metabolic Panel Sent. tw5 03:21 Basic Metabolic Panel Sent. tw5 03:21 CBC with Diff Sent. tw5 03:21 LFT's Sent. tw5 03:21 PT-INR Sent. tw 03:21 Troponin (emerg Dept Use Only) Sent. tw5 03:21 NT PRO-BNP Sent. tw5 03:21 Magnesium Sent. tw5 03:26 XRAY Chest (1 view) In Process Unspecified. EDMS 04:31 CT Chest For PE Angio In Process Unspecified. EDMS 06:43 No provider procedures requiring assistance completed. IV discontinued, intact, 5 bleeding controlled, No redness/swelling at site. Pressure dressing applied. Administered Medications: 03:08 Drug: Albuterol 2.5 mg Route: Inhalation; tw 03:08 Drug: AtroVENT (ipratropium) Aerosol 0.5 mg Route: Inhalation; Outcome: 06:33 Discharge ordered by . [facility] 06:43 Discharged to home ambulatory, with family. [facility] 06:43 Condition: good 06:43 Discharge instructions given to patient, family, Instructed on discharge instructions, follow up and referral plans. medication usage, Demonstrated understanding of instructions, follow-up care, medications, Prescriptions given X 2. 06:43 Patient left the ED. 5 Signatures: Dispatcher [employer] EDMS Brenda Aguilera RN RN lp1 Jake Trinidad MD MD [facility] Marly Shephred 5 Alexus Begum RN RN 5 Corrections: (The following items were deleted from the chart) 03:31 03:21 CORONAVIRUS drawn and sent. tw5 EDMS
--- NOTE | 2021-04-22 06:34 | EDPHYS ---
Physician Documentation [facility] Name: Erick Horn Age: 70 yrs Sex: Male : 1950 Arrival Date: 04/22/2021 Time: 02:44 Bed 6 Private MD: ED Physician Jake Trinidad HPI: 04/22 02:51 This 70 yrs old Unknown Male presents to ER via Wheelchair with complaints of Shortness mh7 Of Breath. 02:51 The patient has shortness of breath at rest, with light activity. Onset: The mh7 symptoms/episode began/occurred yesterday. Duration: The symptoms are intermittent, with no pattern. The patient's shortness of breath is aggravated by coughing, light activity, is alleviated by nothing. Associated signs and symptoms: Pertinent positives: non-productive cough, Pertinent negatives: chest pain, productive cough, diaphoresis, dizziness, fever, hemoptysis, loss of consciousness, nausea, numbness in extremities, visual changes, vomiting. Severity of symptoms: At their worst the symptoms were moderate last night, in the emergency department the symptoms are unchanged. He had hernia repair 2 days ago. Historical: - Allergies: 02:45 No Known Allergies; lp1 - Home Meds: 02:45 None [Active]; lp1 - PMHx: 02:45 Hyperlipidemia; Hypertension; lp1 - PSHx: 02:45 Hernia Repair; lp1 - Immunization history:: Adult Immunizations up to date. - Social history:: Smoking status: Patient denies any tobacco usage or history of. ROS: 02:51 Constitutional: Negative for fever, chills, and weight loss, Eyes: Negative for injury, mh7 pain, redness, and discharge, ENT: Negative for injury, pain, and discharge, Neck: Negative for injury, pain, and swelling, Cardiovascular: Negative for chest pain, palpitations, and edema, Abdomen/GI: Negative for abdominal pain, nausea, vomiting, diarrhea, and constipation, Back: Negative for injury and pain, : Negative for injury, bleeding, discharge, and swelling, MS/Extremity: Negative for injury and deformity, Skin: Negative for injury, rash, and discoloration, Neuro: Negative for headache, weakness, numbness, tingling, and seizure, Psych: Negative for depression, anxiety, suicide ideation, homicidal ideation, and hallucinations, Allergy/Immunology: Negative for hives, rash, and allergies, Endocrine: Negative for neck swelling, polydipsia, polyuria, polyphagia, and marked weight changes. Exam: 02:51 Head/Face: Normocephalic, atraumatic. Eyes: Pupils equal round and reactive to light, mh7 extra-ocular motions intact. Lids and lashes normal. Conjunctiva and sclera are non-icteric and not injected. Cornea within normal limits. Periorbital areas with no swelling, redness, or edema. Neck: Trachea midline, no thyromegaly or masses palpated, and no cervical lymphadenopathy. Supple, full range of motion without nuchal rigidity, or vertebral point tenderness. No Meningismus. Chest/axilla: Normal chest wall appearance and motion. Nontender with no deformity. No lesions are appreciated. Cardiovascular: Regular rate and rhythm with a normal S1 and S2. No gallops, murmurs, or rubs. Normal PMI, no JVD. No pulse deficits. 02:51 Back: No spinal tenderness. No costovertebral tenderness. Full range of motion. Skin: Warm, dry with normal turgor. Normal color with no rashes, no lesions, and no evidence of cellulitis. MS/ Extremity: Pulses equal, no cyanosis. Neurovascular intact. Full, normal range of motion. Neuro: Awake and alert, GCS 15, oriented to person, place, time, and situation. Cranial nerves II-XII grossly intact. Motor strength 5/5 in all extremities. Sensory grossly intact. Cerebellar exam normal. Normal gait. Psych: Awake, alert, with orientation to person, place and time. Behavior, mood, and affect are within normal limits. 02:51 Constitutional: The patient appears in no acute distress, alert, awake, uncomfortable. 02:51 Respiratory: the patient does not display signs of respiratory distress, Respirations: prolonged exhalation, that is mild, Breath sounds: rhonchi, that are mild, are scattered, Respiratory rate: 20 02:51 Abdomen/GI: Inspection: scar(s), are noted in the right upper quadrant and left upper mh7 quadrant, Bowel sounds: normal, in all quadrants, Palpation: abdomen is soft and non-tender, in all quadrants, Rectal exam: the exam is deferred, because of patient request, Indicators: McBurney's point is not tender, Mckeon's sign is negative, Rovsing's sign is negative, Obturator sign is negative, Psoas sign is negative, Liver: no appreciated palpable abnormalities, Hernia: not appreciated. Vital Signs: 02:44 Pulse 100; Pulse Ox 99% on R/A; Weight 91.63 kg (R); Height 6 ft. 1 in. (185.42 cm); lp1 03:16 BP 159 / 91; Pulse 75; Resp 22; Pulse Ox 99% on R/A; Pain 8/10; tw5 03:37 Temp 97.6(O); tw5 05:00 BP 151 / 78; Pulse 70; Resp 14; Pulse Ox 95% on R/A; sm5 06:00 BP 147 / 80; Pulse 72; Resp 17; Pulse Ox 95% on R/A; sm5 02:44 Body Mass Index 26.65 (91.63 kg, 185.42 cm) lp1 MDM: 06:32 Differential diagnosis: Anemia Anxiety Reaction asthma, Bronchitis CHF exacerbation, 7 Chronic Obstructive Pulmonary Disease Myocardial Infarction pneumonia, Pneumothorax Psychogenic pulmonary edema, Pulmonary Embolism reactive airway disease. Data reviewed: vital signs, nurses notes, lab test result(s), cardiac enzymes, CBC, electrolytes, EKG, radiologic studies, CT scan, plain films. Data interpreted: Pulse oximetry: on room air is 99 %. Interpretation: normal. Counseling: I had a detailed discussion with the patient and/or guardian regarding: the historical points, exam findings, and any diagnostic results supporting the discharge/admit diagnosis, the presence of at least one elevated blood pressure reading (>120/80) during this emergency department visit, lab results, radiology results, the need for outpatient follow up, to return to the emergency department if symptoms worsen or persist or if there are any questions or concerns that arise at home. Response to treatment: the patient's symptoms have resolved after treatment, the patient's blood pressure is in an acceptable range, mental status has returned to baseline, the patient no longer shows bradycardia, the patient is not short of breath, the patient is not tachycardic, the patient's pain is gone, the patient's temperature has normalized, the patient is now symptom free, patient is well hydrated. 06:33 Patient medically screened. [facility] 04/22 02:47 Order name: Basic Metabolic Panel [facility] 04/22 02:47 Order name: CBC with Diff [facility] 04/22 02:47 Order name: LFT's [facility] 04/22 02:47 Order name: Magnesium [facility] 04/22 02:47 Order name: NT PRO-BNP [facility] 04/22 02:47 Order name: PT-INR; Complete Time: 03:41 [facility] 04/22 02:47 Order name: Troponin (emerg Dept Use Only); Complete Time: 04:02 [facility] 04/22 02:47 Order name: Basic Metabolic Panel; Complete Time: 04:02 [facility] 04/22 02:47 Order name: CBC with Automated Diff; Complete Time: 04:02 [facility] 04/22 02:47 Order name: Liver (Hepatic) Function; Complete Time: 04:02 [facility] 04/22 02:47 Order name: Magnesium; Complete Time: 04:02 [facility] 04/22 02:47 Order name: NT PRO-BNP; Complete Time: 04:02 [facility] 04/22 02:48 Order name: COVID-19 (Coronavirus) Document "Date of Onset" if Symptomatic [facility] 04/22 02:47 Order name: XRAY Chest (1 view) [facility] 04/22 02:47 Order name: EKG; Complete Time: 02:48 [facility] 04/22 02:47 Order name: Cardiac monitoring; Complete Time: 02:56 [facility] 04/22 02:47 Order name: EKG - Nurse/Tech; Complete Time: 02:56 [facility] 04/22 02:47 Order name: IV Saline Lock; Complete Time: 03:21 [facility] 04/22 02:47 Order name: Labs collected and sent; Complete Time: 03:21 [facility] 04/22 02:47 Order name: O2 Per Protocol; Complete Time: 02:56 [facility] 04/22 02:47 Order name: O2 Sat Monitoring; Complete Time: 02:56 [facility] 04/22 03:31 Order name: SARS-COV-2 RT PCR; Complete Time: 05:10 [facility] 04/22 04:03 Order name: CT Chest For PE Angio [facility] 04/22 05:37 Order name: Troponin (emerg Dept Use Only); Complete Time: 06:17 tw5 Administered Medications: 03:08 Drug: Albuterol 2.5 mg Route: Inhalation; tw5 03:08 Drug: AtroVENT (ipratropium) Aerosol 0.5 mg Route: Inhalation; tw5 Disposition Summary: 04/22/21 06:33 Discharge Ordered Location: Home [facility] Problem: new [facility] Symptoms: have improved [facility] Condition: Stable [facility] Diagnosis - Atelectasis [facility] - Cough [facility] Followup: [facility] - With: Private Physician - When: 1 - 2 days - Reason: Worsening of condition, Recheck today's complaints, Continuance of care, Re-evaluation by your physician Discharge Instructions: - Discharge Summary Sheet [facility] - Atelectasis, Adult [facility] - Cough, Adult, [id number] - How to Use an Incentive Spirometer [facility] Forms: - Medication Reconciliation Form [facility] - Thank You Letter [facility] - Antibiotic Education [facility] - Prescription Opioid Use [facility] Prescriptions: - albuterol sulfate 90 mcg/actuation Inhalation HFA aerosol inhaler - inhale 2 puff by INHALATION route every 6 hours As needed; 1 Inhaler; Refills: [facility] 0, Product Selection Permitted - Tessalon Perles 100 mg Oral Capsule - take 1 capsule by ORAL route every 8 hours As needed; 15 capsule; Refills: 0, 7 Product Selection Permitted Signatures: Dispatcher [employer] EDBrenda Cardoso RN RN lp1 Saul Stanley, ICE SKATING COACH-C ICE SKATING COACH-Cla1 Jake Trinidad MD MD 7 Marly Shepherd 5 Corrections: (The following items were deleted from the chart) 03:31 02:49 CORONAVIRUS ordered. EDME EDMS
[2021-04-22 07:01] VITALS: TEMP 97.6
[2021-04-22 07:03] VITALS: O2SAT 95
[2021-04-22 07:04] VITALS: BP 147/80
--- NOTE | 2021-04-22 08:33 | RAD REPORT ---
EXAM DESCRIPTION: RAD - Chest Single View - 04/22/2021 3:27 am CLINICAL HISTORY: SOB;Cough Chest pain. COMPARISON: Chest Pa And Lat (2 Views) dated 04/15/2021; Chest Single View dated 07/09/2020; Chest Si ngle View dated 02/15/2018 FINDINGS: Portable technique limits examination quality. Mild elevation of the right hemidiaphragm is seen, without clear etiology. The lungs are otherwise cl ear. The heart is normal in size. No displaced fractures. IMPRESSION: No acute intrathoracic process suspected.
--- NOTE | 2021-04-22 15:17 | RAD REPORT ---
EXAM DESCRIPTION: CT CHEST ANGIOGRAPHY WITH IV CONTRAST on 04/22/2021 4:03 AM DIRECTOR RELIGIOUS EDUCATION. CLINICAL HISTORY: SOB COMPARISON: None. TECHNIQUE: CT CHEST ANGIOGRAPHY WITH IV CONTRAST on 04/22/2021 4:03 AM DIRECTOR RELIGIOUS EDUCATION. MIPS reconstructions wer e generated. This exam was performed according to our departmental dose-optimization program, which includes autom ated exposure control, adjustment of the mA and/or kV according to patient size and/or use of iterati ve reconstruction technique. MIP images were generated. FINDINGS: Thoracic aorta is normal in course and caliber without aneurysm or dissection. Pulmonary a rteries are adequately opacified without acute or chronic filling defects. The heart is normal in size. There is no pericardial effusion. Intrathoracic lymph nodes are not enla rged. There is no pleural effusion, pleural thickening or pneumothorax. Central airways are patent. There i s right basilar atelectasis and scarring. There is no focal consolidation. There is minimal scarring in the anterior left upper lobe. There are no acute abnormalities within the limited images of the upper abdomen. There are no acute osseous findings. No suspicious bony lesions. IMPRESSION: No aortic dissection or aneurysm. No pulmonary embolus. No pneumonia. Electronically signed by: Yoel Garner MD 04/22/2021 5:20 AM DIRECTOR RELIGIOUS EDUCATION Due to temporary technical issues with the PACS/Fluency reporting system, reports are being signed by the in house radiologists without review as a courtesy to insure prompt reporting. The interpreting radiologist is fully responsible for the content of the report.
== END 2021-04-22 06:43 | disposition home or self-care (01) ==
LOC: ER 02:35
DX: J98.11 Atelectasis (principal); R05.9 Cough, unspecified; Z98.890 Other specified postprocedural states; Z20.822 Contact with and (suspected) exposure to COVID-19
CPT/HCPCS: 93005; 85025; 80048; 36415; 83735; 85610; 80076; 84484 ×2; 83880; 71275; 71045; 99285; U0003; Q9967